=== PATIENT | male | born 1965 | race African-American/Black ===

== ENCOUNTER 2016-10-26 16:09 | Inpatient (IN) | payer MEDICAID ==
[~2016-10-26] VITALS: Ht 172.7 cm; Wt 62.6 kg
[2016-10-26] MEDS ORDERED: ONDANSETRON 2MG/ML, 2ML ONE (17:57)
[2016-10-26] MEDS ORDERED: MORPHINE SULFATE 4 MG/ML, 1ML ONE (17:57)
[2016-10-26] MEDS ORDERED: SODIUM CHLORIDE FLUSH 10ML SYR IVF ONE (18:00)
[2016-10-26] MEDS ORDERED: ONDANSETRON 2MG/ML, 2ML IVPush ONE (18:00)
[2016-10-26] MEDS ORDERED: SODIUM CHLORIDE 0.9% 1,000ML IVBOLUS ONE (18:00)
[2016-10-26] MEDS ORDERED: MORPHINE SULFATE 4 MG/ML, 1ML IVPush PRN (18:00)
[2016-10-26 18:38] LABS: ASPARTATE AMINO TRANSFERASE 33 U/L (15-37); BLOOD UREA NITROGEN 2 mg/dL (7-18)
[2016-10-26] MEDS ORDERED: SODIUM CHLORIDE 0.9% 1,000 ML IV ONE (19:40)
[2016-10-26] MEDS ORDERED: HYDROmorphone 1 MG/ML, 1ML ONE (19:41)
[2016-10-26] MEDS ORDERED: HYDROmorphone 1 MG/ML, 1ML IVPush PRN (20:00)
[2016-10-26 21:00] VITALS: BP 164/94
[2016-10-26] MEDS ORDERED: THIAMINE 100 MG, MVI ADULT 10 ML, FOLIC ACID 1 MG in D5%-0.9% NACL 1,000 ML IV SCH (21:29)
[2016-10-26] MEDS ORDERED: ENALAPRILAT 1.25 MG/ML, 2ML IVPush PRN (21:30)
[2016-10-26] MEDS ORDERED: LABETALOL 5MG/ML, 20ML IV PRN (21:30)
[2016-10-26] MEDS ORDERED: LORazepam 2 MG/ML, 1ML IVPush PRN (21:30)
[2016-10-26] MEDS ORDERED: MAGNESIUM SULFATE PMX 2GM/50ML 50 ML IV ONE (22:00)
[2016-10-26] MEDS: ENOXAPARIN 40 MG/0.4 ML SQ SCH (22:23)
[2016-10-26] MEDS: SODIUM CHLORIDE 0.9% 1,000 ML IV SCH (22:23)
[2016-10-26] MEDS: HYDROmorphone 2 MG/ML, 1ML IV PRN (22:23)
[2016-10-26] MEDS: NICOTINE 14MG/24 HR PATCH.TD24 TD SCH (22:23)
[2016-10-27 01:42] VITALS: BP 151/88
[2016-10-27] MEDS: HYDROmorphone 2 MG/ML, 1ML IV PRN ×5 (02:09→21:27)
[2016-10-27] MEDS: ONDANSETRON 2MG/ML, 2ML IVP PRN ×2 (02:15→18:03)
[2016-10-27] MEDS ORDERED: OMNIPAQUE 350 MG/ML, 150 ML BOTTLE ONE (04:53)
[2016-10-27 05:46] LABS: BLOOD UREA NITROGEN 4 mg/dL (7-18)
[2016-10-27 05:55] LABS: ASPARTATE AMINO TRANSFERASE 22 U/L (15-37)
[2016-10-27] MEDS: SODIUM CHLORIDE 0.9% 1,000 ML IV SCH ×3 (06:07→23:40)
[2016-10-27 07:31] VITALS: BP 163/96
[2016-10-27] MEDS: THIAMINE 100 MG, MVI ADULT 10 ML, FOLIC ACID 1 MG in D5%-0.9% NACL 1,000 ML IV SCH (09:44)
[2016-10-27 14:09] VITALS: BP 168/101
[2016-10-27 14:53] VITALS: BP 149/98
[2016-10-27] MEDS ORDERED: ENALAPRILAT 1.25 MG/ML, 2ML IVPush PRN (15:30)
[2016-10-27 19:22] VITALS: BP_SYST 137; BP_SYST 197; BP_DIAS 96
[2016-10-27] MEDS: ENOXAPARIN 40 MG/0.4 ML SQ SCH (21:27)
[2016-10-27] MEDS: NICOTINE 14MG/24 HR PATCH.TD24 TD SCH (21:27)
[2016-10-28] MEDS: ONDANSETRON 2MG/ML, 2ML IVP PRN ×4 (00:30→22:03)
[2016-10-28 01:21] VITALS: BP 129/88
[2016-10-28] MEDS: HYDROmorphone 2 MG/ML, 1ML IV PRN ×5 (01:54→22:04)
[2016-10-28 06:13] LABS: ASPARTATE AMINO TRANSFERASE 16 U/L (15-37); BLOOD UREA NITROGEN 6 mg/dL (7-18)
[2016-10-28] MEDS: SODIUM CHLORIDE 0.9% 1,000 ML IV SCH ×3 (06:20→18:46)
[2016-10-28 07:44] VITALS: BP 174/104
[2016-10-28 08:15] VITALS: BP 160/99
[2016-10-28] MEDS: THIAMINE 100 MG, MVI ADULT 10 ML, FOLIC ACID 1 MG in D5%-0.9% NACL 1,000 ML IV SCH (08:39)
[2016-10-28 13:42] VITALS: BP 181/106
[2016-10-28] MEDS: hydrALAzine 20 MG/ML, 1ML IV PRN (14:47)
[2016-10-28 15:21] VITALS: BP 151/84
[2016-10-28 19:05] VITALS: BP 154/93
[2016-10-28] MEDS: NICOTINE 14MG/24 HR PATCH.TD24 TD SCH (22:03)
[2016-10-28] MEDS: ENOXAPARIN 40 MG/0.4 ML SQ SCH (22:03)
[2016-10-29] MEDS: SODIUM CHLORIDE 0.9% 1,000 ML IV SCH ×3 (00:14→23:17)
[2016-10-29 04:10] VITALS: BP 186/97
[2016-10-29] MEDS: LABETALOL 5MG/ML, 20ML IV PRN ×2 (04:32→14:03)
[2016-10-29] MEDS: ONDANSETRON 2MG/ML, 2ML IVP PRN ×3 (04:35→21:13)
[2016-10-29 07:27] VITALS: BP 194/111
[2016-10-29] MEDS: hydrALAzine 20 MG/ML, 1ML IV PRN (08:00)
[2016-10-29] MEDS: HYDROmorphone 2 MG/ML, 1ML IV PRN ×4 (08:01→21:14)
[2016-10-29 08:30] VITALS: BP 168/91
[2016-10-29] MEDS ORDERED: PROMETHAZINE 25 MG/ML, 1ML IM PRN (10:00)
[2016-10-29] MEDS ORDERED: BISACODYL 10 MG SUPP PR PRN ×2 (10:00→12:30)
[2016-10-29] MEDS: THIAMINE 100 MG, MVI ADULT 10 ML, FOLIC ACID 1 MG in D5%-0.9% NACL 1,000 ML IV SCH (10:11)
[2016-10-29 13:54] VITALS: BP 176/98
[2016-10-29] MEDS ORDERED: WARFARIN MODERAT DOSE PROTOCOL XX SCH (14:53)
[2016-10-29] MEDS: RIVAROXABAN 15 MG TABLET PO SCH (17:54)
[2016-10-29] MEDS ORDERED: WARFARIN 7.5 MG TABLET PO-COUM ONE (18:00)
[2016-10-29] MEDS ORDERED: OMNIPAQUE 350 MG/ML, 150 ML BOTTLE ONE (19:08)
[2016-10-29 19:17] VITALS: BP 138/88
[2016-10-29] MEDS ORDERED: BISACODYL 10 MG SUPP PR ONE (21:00)
[2016-10-29] MEDS: NICOTINE 14MG/24 HR PATCH.TD24 TD SCH (21:14)
[2016-10-30 02:05] VITALS: BP 119/78
[2016-10-30] MEDS: SODIUM CHLORIDE 0.9% 1,000 ML IV SCH ×4 (05:40→22:31)
[2016-10-30] MEDS: ONDANSETRON 2MG/ML, 2ML IVP PRN (06:05)
[2016-10-30] MEDS: HYDROmorphone 2 MG/ML, 1ML IV PRN ×2 (06:05→09:26)
[2016-10-30 06:18] LABS: ASPARTATE AMINO TRANSFERASE 20 U/L (15-37); BLOOD UREA NITROGEN 5 mg/dL (7-18)
[2016-10-30 07:20] VITALS: BP 132/76
[2016-10-30] MEDS: RIVAROXABAN 15 MG TABLET PO SCH ×2 (09:26→17:45)
[2016-10-30 12:30] VITALS: BP 126/78
[2016-10-30 20:04] VITALS: BP 154/90
[2016-10-30] MEDS: NICOTINE 14MG/24 HR PATCH.TD24 TD SCH (22:32)
[2016-10-31 00:47] LABS: OCCBLD OBC PASS
[2016-10-31 03:15] VITALS: BP 144/86
[2016-10-31] MEDS: SODIUM CHLORIDE 0.9% 1,000 ML IV SCH ×3 (05:11→19:41)
[2016-10-31] MEDS: HYDROmorphone 2 MG/ML, 1ML IV PRN ×2 (05:12→20:32)
[2016-10-31 06:22] LABS: BLOOD UREA NITROGEN 3 mg/dL (7-18)
[2016-10-31 07:12] VITALS: BP 166/97
[2016-10-31] MEDS: RIVAROXABAN 15 MG TABLET PO SCH ×2 (08:06→17:14)
[2016-10-31 14:09] VITALS: BP 155/92
[2016-10-31 19:00] VITALS: BP 173/113
[2016-10-31] MEDS: ONDANSETRON 2MG/ML, 2ML IVP PRN (20:32)
[2016-10-31 21:49] VITALS: BP 151/97
[2016-10-31] MEDS: NICOTINE 14MG/24 HR PATCH.TD24 TD SCH (23:38)
[2016-11-01] MEDS: SODIUM CHLORIDE 0.9% 1,000 ML IV SCH (02:27)
[2016-11-01 02:37] VITALS: BP 159/97
[2016-11-01] MEDS: RIVAROXABAN 15 MG TABLET PO SCH (07:26)
[2016-11-01 08:40] VITALS: BP 148/97
[2016-11-01] MEDS ORDERED: PNEUMOCOCCAL 23 VACCINE IM-VACC ONE (10:30)
[2016-11-01] MEDS ORDERED: RIVA15TA PO (14:42)
[2016-11-01] MEDS ORDERED: ONDA4TAB10 PO (14:42)
== END 2016-11-01 15:11 | disposition home or self-care (01) | DRG 438 ==
LOC: ED 18:31 → EDIP 19:45 → 3NE 20:58
PROVIDERS: ADMIT Internal Medicine; ATTEND Internal Medicine
DX: K85.20 Alcohol induced acute pancreatitis without necrosis or infection (principal); I81 Portal vein thrombosis; K56.7 Ileus, unspecified; C25.9 Malignant neoplasm of pancreas, unspecified; D68.59 Other primary thrombophilia; K86.2 Cyst of pancreas; F17.210 Nicotine dependence, cigarettes, uncomplicated; I10 Essential (primary) hypertension; F10.20 Alcohol dependence, uncomplicated; K80.20 Calculus of gallbladder without cholecystitis without obstruction; D47.3 Essential (hemorrhagic) thrombocythemia; K76.0 Fatty (change of) liver, not elsewhere classified; D75.89 Other specified diseases of blood and blood-forming organs; D64.9 Anemia, unspecified; R00.0 Tachycardia, unspecified
CPT/HCPCS: 36415; 71020; 74000; 74177; 74178; 76700; 80048; 80053; 80061; 81003; 82150; 82272; 82607; 82746; 83690; 83735; 84100; 84443; 85025; 85610; 86301; 90732; 93005; 96361; 96374; 96375; J1170; J1650; J2405; J2550; J3411; J7042; Q9967; J0360; J3475; J7030

== ENCOUNTER 2016-11-30 20:18 | Inpatient (IN) | payer MEDICAID ==
[~2016-11-30] VITALS: Ht 172.7 cm; Wt 59.5 kg
[~2016-11-30 20:18] MED LIST: ONDA4TAB10 PO; RIVA15TA PO
[2016-11-30] MEDS ORDERED: ONDANSETRON 2MG/ML, 2ML ONE (21:06)
[2016-11-30] MEDS ORDERED: SODIUM CHLORIDE 0.9% 1,000 ML IV ONE ×2 (21:08→23:07)
[2016-11-30] MEDS ORDERED: HYDROmorphone 1 MG/ML, 1ML ONE ×2 (21:15→22:27)
[2016-11-30] MEDS: HYDROmorphone 1 MG/ML, 1ML IVPush PRN ×2 (21:22→22:30)
[2016-11-30] MEDS ORDERED: ONDANSETRON 2MG/ML, 2ML IVPush ONE (21:30)
[2016-11-30] MEDS ORDERED: SODIUM CHLORIDE FLUSH 10ML SYR IVF ONE (21:30)
[2016-11-30] MEDS ORDERED: SODIUM CHLORIDE 0.9% 1,000ML IVBOLUS ONE (21:30)
[2016-11-30 21:48] LABS: ASPARTATE AMINO TRANSFERASE 29 U/L (15-37); BLOOD UREA NITROGEN 5 mg/dL (7-18)
[2016-11-30] MEDS: SODIUM CHLORIDE 0.9% 1,000 ML IV SCH (23:28)
[2016-11-30] MEDS ORDERED: ACETAMINOPHEN 325 MG TABLET PO PRN (23:30)
[2016-11-30] MEDS ORDERED: ENOXAPARIN 40 MG/0.4 ML SQ SCH (23:30)
[2016-11-30] MEDS ORDERED: HYDROmorphone 1 MG/ML, 1ML IVPush PRN (23:30)
[2016-11-30] MEDS ORDERED: SODIUM CHLORIDE FLUSH 10ML SYR IVF PRN (23:30)
[2016-11-30] MEDS ORDERED: ONDANSETRON 2MG/ML, 2ML IVPush PRN (23:30)
[2016-11-30] MEDS ORDERED: TRAZODONE 50MG TABLET PO PRN (23:30)
[2016-11-30] MEDS ORDERED: BISACODYL 10 MG SUPP PR PRN (23:30)
[2016-11-30 23:50] VITALS: BP 159/94
[2016-12-01] MEDS: ONDANSETRON ODT 4 MG PO PRN ×2 (00:26→08:21)
[2016-12-01] MEDS: NICOTINE 14MG/24 HR PATCH.TD24 TD SCH ×2 (00:53→23:30)
[2016-12-01 01:40] LABS: ASPARTATE AMINO TRANSFERASE 21 U/L (15-37); BLOOD UREA NITROGEN 4 mg/dL (7-18)
[2016-12-01] MEDS ORDERED: MAGNESIUM SULFATE PMX 4GM/100M 100 ML IV ONE (03:00)
[2016-12-01 03:13] VITALS: BP 170/118
[2016-12-01] MEDS: LABETALOL 5MG/ML, 20ML IVPush PRN ×3 (03:21→13:38)
[2016-12-01 05:00] VITALS: BP 190/115
[2016-12-01] MEDS: SODIUM CHLORIDE 0.9% 1,000 ML IV SCH ×4 (05:11→22:43)
[2016-12-01] MEDS ORDERED: hydrALAzine 20 MG/ML, 1ML IV PRN (05:30)
[2016-12-01] MEDS ORDERED: hydrALAzine 20 MG/ML, 1ML ONE (05:30)
[2016-12-01] MEDS: XARELTO MC SCH ×3 (07:00→11:29)
[2016-12-01 07:36] VITALS: BP 159/96
[2016-12-01] MEDS: RIVAROXABAN 15 MG TABLET PO SCH ×3 (08:00→17:26)
[2016-12-01] MEDS: PROCHLORPERAZINE 5 MG/ML, 2ML IVPush PRN ×2 (09:09→13:18)
[2016-12-01] MEDS: DOCUSATE 100 MG CAPSULE PO PRN (09:09)
[2016-12-01] MEDS: POLYETHYLENE GLYCOL 17 GM PACKET PO PRN (09:17)
[2016-12-01 13:33] VITALS: BP 187/105
[2016-12-01] MEDS: AMLODIPINE 2.5 MG TABLET PO SCH (15:29)
[2016-12-01] MEDS: MULTIVITAMIN 1 TABLET PO SCH (15:29)
[2016-12-01] MEDS: THIAMINE 100MG TABLET PO SCH (15:29)
[2016-12-01] MEDS: FOLIC ACID 1 MG TABLET PO SCH (15:29)
[2016-12-01 19:49] VITALS: BP 164/113
[2016-12-02 03:48] VITALS: BP 170/105
[2016-12-02] MEDS: SODIUM CHLORIDE 0.9% 1,000 ML IV SCH ×2 (04:58→14:52)
[2016-12-02 06:01] LABS: BLOOD UREA NITROGEN 4 mg/dL (7-18)
[2016-12-02] MEDS ORDERED: POTASSIUM CHLORIDE 20 MEQ TAB.ER.PRT PO ONE (07:00)
[2016-12-02 07:26] VITALS: BP 154/100
[2016-12-02] MEDS ORDERED: MAGNESIUM SULFATE PMX 4GM/100M 100 ML IV ONE (08:00)
[2016-12-02] MEDS: THIAMINE 100MG TABLET PO SCH (08:13)
[2016-12-02] MEDS: MULTIVITAMIN 1 TABLET PO SCH (08:13)
[2016-12-02] MEDS: AMLODIPINE 2.5 MG TABLET PO SCH (08:13)
[2016-12-02] MEDS: FOLIC ACID 1 MG TABLET PO SCH (08:14)
[2016-12-02] MEDS: RIVAROXABAN 15 MG TABLET PO SCH ×2 (08:14→17:18)
[2016-12-02 13:37] VITALS: BP 155/100
[2016-12-02] MEDS ORDERED: AMLODIPINE 2.5 MG TABLET PO ONE (14:00)
[2016-12-02] MEDS: POLYETHYLENE GLYCOL 17 GM PACKET PO PRN (14:52)
[2016-12-02] MEDS: DOCUSATE 100 MG CAPSULE PO PRN (14:52)
[2016-12-02] MEDS ORDERED: hydrALAzine 20 MG/ML, 1ML IV PRN (17:30)
[2016-12-02 19:59] VITALS: BP 156/94
[2016-12-02] MEDS: NICOTINE 14MG/24 HR PATCH.TD24 TD SCH (23:30)
[2016-12-03 02:51] VITALS: BP 145/107
[2016-12-03 06:39] LABS: BLOOD UREA NITROGEN 4 mg/dL (7-18)
[2016-12-03 07:21] VITALS: BP 157/100
[2016-12-03] MEDS ORDERED: AMLODIPINE 5 MG TABLET PO SCH (09:00)
[2016-12-03] MEDS: SODIUM CHLORIDE 0.9% 1,000 ML IV SCH (09:28)
[2016-12-03] MEDS: RIVAROXABAN 15 MG TABLET PO SCH (11:19)
[2016-12-03] MEDS: FOLIC ACID 1 MG TABLET PO SCH (11:20)
[2016-12-03] MEDS: MULTIVITAMIN 1 TABLET PO SCH (11:20)
[2016-12-03] MEDS: THIAMINE 100MG TABLET PO SCH (11:20)
[2016-12-03 12:55] VITALS: BP 155/100
[2016-12-03] MEDS ORDERED: FOLI-17 PO (13:53)
[2016-12-03] MEDS ORDERED: HYDR12.58 PO (13:53)
[2016-12-03] MEDS ORDERED: AMLO5TAB2 PO (13:53)
[2016-12-03] MEDS ORDERED: MULT1TAB60 PO (13:53)
[2016-12-03] MEDS ORDERED: THIA100T6 PO (13:53)
== END 2016-12-03 15:42 | disposition home or self-care (01) | DRG 439 ==
LOC: ED 21:20 → EDIP 23:07 → 4NOR 12-01 00:03 → 3NE 12-03 05:29 → DCLOUNGE 12-03 15:25
PROVIDERS: ADMIT Internal Medicine; ATTEND Internal Medicine
DX: K86.0 Alcohol-induced chronic pancreatitis (principal); E87.1 Hypo-osmolality and hyponatremia; K86.3 Pseudocyst of pancreas; E87.2 Acidosis; E44.1 Mild protein-calorie malnutrition; Z68.1 Body mass index [BMI] 19.9 or less, adult; D64.9 Anemia, unspecified; E83.42 Hypomagnesemia; F10.20 Alcohol dependence, uncomplicated; E87.8 Other disorders of electrolyte and fluid balance, not elsewhere classified; F17.210 Nicotine dependence, cigarettes, uncomplicated; I10 Essential (primary) hypertension; Z86.718 Personal history of other venous thrombosis and embolism
CPT/HCPCS: 36415; 74022; 80048; 80053; 81001; 82040; 83605; 83690; 83735; 85025; 87086; 93005; 96361; 96374; 96375; 96376; J1170; J1650; J2405; Q0162; J0360; J0780; J3475; J7030

== ENCOUNTER 2017-01-23 02:42 | Emergency (ER) | payer MEDICAID ==
[~2017-01-23] VITALS: Ht 172.7 cm; Wt 58.2 kg
[~2017-01-23 02:42] MED LIST changes: +AMLO5TAB2 PO; +FOLI-17 PO; +HYDR12.58 PO; +MULT1TAB60 PO; +OXYC5TAB3 PO; +THIA100T6 PO
[2017-01-23] MEDS ORDERED: ONDANSETRON 2MG/ML, 2ML ONE (03:27)
[2017-01-23] MEDS ORDERED: ONDANSETRON 2MG/ML, 2ML IVPush ONE (03:30)
[2017-01-23] MEDS ORDERED: SODIUM CHLORIDE FLUSH 10ML SYR IVF ONE (03:30)
[2017-01-23] MEDS ORDERED: SODIUM CHLORIDE 0.9% 1,000ML IVBOLUS ONE (03:30)
[2017-01-23] MEDS ORDERED: MORPHINE SULFATE 4 MG/ML, 1ML ONE ×2 (03:52→05:06)
[2017-01-23] MEDS: MORPHINE SULFATE 4 MG/ML, 1ML IVPush PRN ×2 (03:55→05:10)
[2017-01-23 04:08] LABS: ASPARTATE AMINO TRANSFERASE 42 U/L (15-37); BLOOD UREA NITROGEN 2 mg/dL (7-18)
[2017-01-23 05:04] VITALS: BP 132/87
== END 2017-01-23 05:55 | disposition home or self-care (01) ==
LOC: ED 04:17
DX: K85.20 Alcohol induced acute pancreatitis without necrosis or infection (principal); F10.120 Alcohol abuse with intoxication, uncomplicated; G40.909 Epilepsy, unspecified, not intractable, without status epilepticus
CPT/HCPCS: 36415; 80053; 80307; 81003; 83690; 85025; 96361; 96374; 96375; 96376; 99284; J2405; J7030

== ENCOUNTER 2017-01-26 18:48 | Inpatient (IN) | payer MEDICAID ==
[~2017-01-26] VITALS: Ht 172.7 cm; Wt 62.9 kg
[2017-01-26] MEDS ORDERED: ONDANSETRON 2MG/ML, 2ML IVPush ONE (19:30)
[2017-01-26] MEDS ORDERED: SODIUM CHLORIDE FLUSH 10ML SYR IVF ONE (19:30)
[2017-01-26] MEDS ORDERED: SODIUM CHLORIDE 0.9% 1,000ML IVBOLUS ONE (19:30)
[2017-01-26] MEDS ORDERED: ONDANSETRON 2MG/ML, 2ML ONE (19:35)
[2017-01-26] MEDS ORDERED: HYDROmorphone 1 MG/ML, 1ML ONE ×2 (19:35→20:23)
[2017-01-26] MEDS: HYDROmorphone 1 MG/ML, 1ML IVPush PRN ×2 (19:41→20:47)
[2017-01-26 19:43] LABS: HEMATOCRIT 41.1 % (39.2-51.8); HEMOGLOBIN 13.7 g/dL (13.7-18.0); WHITE BLOOD COUNT 6.7 x10^3/uL (3.4-10)
[2017-01-26 19:45] LABS: ASPARTATE AMINO TRANSFERASE 19 U/L (15-37); BLOOD UREA NITROGEN 3 mg/dL (7-18)
[2017-01-26] MEDS ORDERED: SODIUM CHLORIDE FLUSH 10ML SYR IVF PRN (21:30)
[2017-01-26] MEDS ORDERED: AMLO1CAP8 PO (21:51)
[2017-01-26] MEDS ORDERED: POTASSIUM CHLORIDE 20 MEQ in LACTATED RINGERS 1,000 ML IV SCH (21:59)
[2017-01-26] MEDS ORDERED: ACETAMINOPHEN 325 MG TABLET PO PRN (22:00)
[2017-01-26] MEDS ORDERED: POLYETHYLENE GLYCOL 17 GM PACKET PO PRN (22:00)
[2017-01-26] MEDS ORDERED: AMLODIPINE 5 MG TABLET PO ONE (22:00)
[2017-01-26] MEDS ORDERED: ZOLPIDEM 5MG TABLET PO PRN (22:00)
[2017-01-26] MEDS ORDERED: ONDANSETRON ODT 4 MG PO PRN (22:00)
[2017-01-26 22:24] VITALS: BP 124/87
[2017-01-26] MEDS ORDERED: LORazepam 0.5MG TABLET PO PRN (22:30)
[2017-01-26] MEDS ORDERED: POTASSIUM CHLORIDE 20 MEQ TAB.ER.PRT PO ONE (22:30)
[2017-01-26] MEDS ORDERED: LORazepam 2 MG/ML, 1ML IV PRN ×5 (22:30)
[2017-01-26] MEDS ORDERED: LORazepam 1MG TABLET PO PRN ×4 (22:30)
[2017-01-26] MEDS: POTASSIUM CHLORIDE 10 MEQ in SODIUM CHLORIDE 0.9% 1,000 ML IV SCH (23:02)
[2017-01-27] VITALS (8 sets, daily range): BP systolic 133–185; BP diastolic 88–118
[2017-01-27] MEDS: NICOTINE 7 MG/24 HR PATCH.TD24 TD SCH ×2 (00:30→23:06)
[2017-01-27] MEDS: HYDROmorphone 2 MG/ML, 1ML IVPush PRN ×5 (00:30→21:04)
[2017-01-27 05:18] LABS: HEMATOCRIT 33.7 % (39.2-51.8); HEMOGLOBIN 11.3 g/dL (13.7-18.0); WHITE BLOOD COUNT 6.1 x10^3/uL (3.4-10)
[2017-01-27 05:29] LABS: BLOOD UREA NITROGEN 3 mg/dL (7-18)
[2017-01-27] MEDS: POTASSIUM CHLORIDE 10 MEQ in SODIUM CHLORIDE 0.9% 1,000 ML IV SCH ×2 (08:08→23:06)
[2017-01-27] MEDS: ONDANSETRON 2MG/ML, 2ML IVPush PRN ×2 (08:09→23:07)
[2017-01-27] MEDS: HYDROCHLOROTHIAZIDE 12.5 MG CAPSULE PO SCH (09:00)
[2017-01-27] MEDS: FOLIC ACID 1 MG TABLET PO SCH (09:52)
[2017-01-27] MEDS: MULTIVITAMIN 1 TABLET PO SCH (09:52)
[2017-01-27] MEDS: BENAZEPRIL 10 MG TABLET PO SCH (09:52)
[2017-01-27] MEDS: SENNA/DOCUSATE TABLET PO SCH (09:53)
[2017-01-27] MEDS: NS + 40MEQ KCL 1,000 ML IV SCH ×3 (12:21→20:00)
[2017-01-27] MEDS ORDERED: GLYCERIN ADULT SUPP PR ONE (13:30)
[2017-01-27 15:15] LABS: BLOOD UREA NITROGEN 4 mg/dL (7-18)
[2017-01-27] MEDS: RIVAROXABAN 15 MG TABLET PO SCH (17:40)
[2017-01-28 00:30] VITALS: BP 177/105
[2017-01-28] MEDS: HYDROmorphone 2 MG/ML, 1ML IVPush PRN ×2 (00:40→06:48)
[2017-01-28] MEDS: ENALAPRILAT 1.25 MG/ML, 2ML IVPush PRN ×3 (00:40→20:36)
[2017-01-28 01:20] VITALS: BP 142/89
[2017-01-28] MEDS: POTASSIUM CHLORIDE 10 MEQ in SODIUM CHLORIDE 0.9% 1,000 ML IV SCH ×2 (06:09→16:01)
[2017-01-28] MEDS: ONDANSETRON 2MG/ML, 2ML IVPush PRN (06:27)
[2017-01-28 06:30] VITALS: BP 184/111
[2017-01-28 07:47] LABS: BLOOD UREA NITROGEN 4 mg/dL (7-18)
[2017-01-28] MEDS: MULTIVITAMIN 1 TABLET PO SCH (08:09)
[2017-01-28] MEDS: SENNA/DOCUSATE TABLET PO SCH (08:09)
[2017-01-28] MEDS: HYDROCHLOROTHIAZIDE 12.5 MG CAPSULE PO SCH (08:09)
[2017-01-28] MEDS: FOLIC ACID 1 MG TABLET PO SCH (08:09)
[2017-01-28] MEDS: BENAZEPRIL 10 MG TABLET PO SCH (08:10)
[2017-01-28] MEDS: HYDROcodone/APAP 5/325 TABLET PO PRN ×2 (11:12→16:11)
[2017-01-28 14:00] VITALS: BP 150/107
[2017-01-28 18:05] LABS: BLOOD UREA NITROGEN 3 mg/dL (7-18)
[2017-01-28] MEDS ORDERED: GLYCERIN ADULT SUPP PR PRN (18:30)
[2017-01-28 19:36] VITALS: BP 165/104
[2017-01-28] MEDS: RIVAROXABAN 15 MG TABLET PO SCH (19:39)
[2017-01-28] MEDS: NICOTINE 7 MG/24 HR PATCH.TD24 TD SCH (20:35)
[2017-01-28 21:35] VITALS: BP 153/103
[2017-01-29] MEDS: POTASSIUM CHLORIDE 10 MEQ in SODIUM CHLORIDE 0.9% 1,000 ML IV SCH (01:32)
[2017-01-29] MEDS: ENALAPRILAT 1.25 MG/ML, 2ML IVPush PRN (01:33)
[2017-01-29 01:51] VITALS: BP 184/115
[2017-01-29 03:30] VITALS: BP 174/103
[2017-01-29] MEDS ORDERED: ENALAPRILAT 1.25 MG/ML, 2ML IV ONE (04:00)
[2017-01-29 05:00] VITALS: BP 143/86
[2017-01-29 07:33] VITALS: BP 151/100
[2017-01-29] MEDS: MULTIVITAMIN 1 TABLET PO SCH (09:16)
[2017-01-29] MEDS: AMLODIPINE 5 MG TABLET PO SCH (09:16)
[2017-01-29] MEDS: SENNA/DOCUSATE TABLET PO SCH (09:16)
[2017-01-29] MEDS: HYDROCHLOROTHIAZIDE 12.5 MG CAPSULE PO SCH (09:17)
[2017-01-29] MEDS: FOLIC ACID 1 MG TABLET PO SCH (09:17)
[2017-01-29] MEDS: HYDROcodone/APAP 5/325 TABLET PO PRN ×3 (09:18→21:57)
[2017-01-29] MEDS: BENAZEPRIL 20 MG TABLET PO SCH (09:19)
[2017-01-29 13:15] VITALS: BP 165/105
[2017-01-29] MEDS: RIVAROXABAN 15 MG TABLET PO SCH (17:30)
[2017-01-29 19:09] VITALS: BP 94/61
[2017-01-29 21:10] LABS: OCCBLD OBC PASS
[2017-01-29] MEDS: NICOTINE 7 MG/24 HR PATCH.TD24 TD SCH (21:57)
[2017-01-30 02:08] VITALS: BP 104/72
[2017-01-30 07:25] VITALS: BP 85/51
[2017-01-30] MEDS: BENAZEPRIL 20 MG TABLET PO SCH (07:43)
[2017-01-30] MEDS: HYDROCHLOROTHIAZIDE 12.5 MG CAPSULE PO SCH (07:44)
[2017-01-30] MEDS: AMLODIPINE 5 MG TABLET PO SCH (08:19)
[2017-01-30] MEDS: MULTIVITAMIN 1 TABLET PO SCH (08:19)
[2017-01-30] MEDS: FOLIC ACID 1 MG TABLET PO SCH (08:19)
[2017-01-30] MEDS: SENNA/DOCUSATE TABLET PO SCH (08:20)
[2017-01-30] MEDS ORDERED: NICO1PAT10 TD (12:55)
[2017-01-30] MEDS ORDERED: ACET325T14 PO (12:55)
[2017-01-30 13:05] VITALS: BP 96/62
[2017-01-30] MEDS: NICOTINE 7 MG/24 HR PATCH.TD24 TD SCH (14:15)
== END 2017-01-30 14:25 | disposition home or self-care (01) | DRG 439 ==
LOC: ED 20:31 → EDIP 21:17 → 3NE 22:00
PROVIDERS: ADMIT Family Medicine; ATTEND Family Medicine
DX: K85.20 Alcohol induced acute pancreatitis without necrosis or infection (principal); K86.3 Pseudocyst of pancreas; E46 Unspecified protein-calorie malnutrition; K92.1 Melena; F10.10 Alcohol abuse, uncomplicated; F17.200 Nicotine dependence, unspecified, uncomplicated; I10 Essential (primary) hypertension; E87.6 Hypokalemia; K59.00 Constipation, unspecified; E86.0 Dehydration; R56.9 Unspecified convulsions; K76.9 Liver disease, unspecified; Z68.21 Body mass index [BMI] 21.0-21.9, adult; Z79.01 Long term (current) use of anticoagulants; Z85.00 Personal history of malignant neoplasm of unspecified digestive organ
CPT/HCPCS: 36415; 71020; 76700; 80048; 80053; 80307; 81001; 82272; 83690; 83735; 85025; 85610; 85730; 87086; 96361; 96374; 96375; 96376; J1170; J2405; J3480; J7030

== ENCOUNTER 2017-02-02 06:35 | Inpatient (IN) | payer MEDICAID ==
[~2017-02-02] VITALS: Ht 172.7 cm; Wt 62.8 kg
[~2017-02-02 06:35] MED LIST changes: +ACET325T14 PO; +AMLO1CAP8 PO; +NICO1PAT10 TD
[2017-02-02] MEDS ORDERED: SODIUM CHLORIDE 0.9% 1,000 ML IV ONE (06:54)
[2017-02-02] MEDS ORDERED: SODIUM CHLORIDE 0.9% 1,000ML IVBOLUS ONE (07:00)
[2017-02-02] MEDS ORDERED: ONDANSETRON 2MG/ML, 2ML IVPush ONE (07:00)
[2017-02-02] MEDS ORDERED: SODIUM CHLORIDE FLUSH 10ML SYR IVF ONE (07:00)
[2017-02-02 07:23] LABS: HEMATOCRIT 38.2 % (39.2-51.8); HEMOGLOBIN 12.9 g/dL (13.7-18.0); WHITE BLOOD COUNT 6.1 x10^3/uL (3.4-10)
[2017-02-02 07:27] LABS: BLOOD UREA NITROGEN 3 mg/dL (7-18)
[2017-02-02] MEDS ORDERED: ONDANSETRON 2MG/ML, 2ML ONE (07:29)
[2017-02-02] MEDS ORDERED: HYDROmorphone 1 MG/ML, 1ML ONE ×2 (07:29→08:47)
[2017-02-02 07:31] LABS: ASPARTATE AMINO TRANSFERASE 137 U/L (15-37)
[2017-02-02] MEDS: HYDROmorphone 1 MG/ML, 1ML IVPush PRN ×2 (07:34→08:50)
[2017-02-02] MEDS ORDERED: OMNIPAQUE 350 MG/ML, 100ML BOTTLE ONE (08:11)
[2017-02-02] MEDS ORDERED: CEFOTETAN PMX 1GM/50ML 50 ML IV ONE (09:00)
[2017-02-02] MEDS ORDERED: SODIUM CHLORIDE 0.9% 1,000 ML IV SCH (09:13)
[2017-02-02] MEDS ORDERED: BISACODYL 10 MG SUPP PR PRN (09:30)
[2017-02-02] MEDS ORDERED: LABETALOL 5MG/ML, 20ML IVPush PRN (09:30)
[2017-02-02] MEDS ORDERED: ENALAPRILAT 1.25 MG/ML, 2ML IVPush PRN (09:30)
[2017-02-02] MEDS ORDERED: ONDANSETRON 2MG/ML, 2ML IVPush PRN (09:30)
[2017-02-02] MEDS ORDERED: POLYETHYLENE GLYCOL 17 GM PACKET PO PRN (09:30)
[2017-02-02] MEDS ORDERED: CEFOTETAN PMX 1GM/50ML 50 ML ONE (09:33)
[2017-02-02 10:40] VITALS: BP 164/106
[2017-02-02 11:02] VITALS: BP 152/87
[2017-02-02] MEDS: SODIUM CHLORIDE 0.9% 1,000 ML IV SCH ×3 (11:39→23:08)
[2017-02-02] MEDS: morphine SULFATE 10 MG/ML, 1ML IVPush PRN ×4 (11:39→23:15)
[2017-02-02] MEDS: NICOTINE 7 MG/24 HR PATCH.TD24 TD SCH (11:40)
[2017-02-02 12:53] VITALS: BP 133/94
[2017-02-02] MEDS ORDERED: [UNRECOGNIZED DRUG - REMARK] MC PRN (19:00)
[2017-02-02 20:14] VITALS: BP 157/93
[2017-02-02] MEDS ORDERED: HEPARIN 5,000 UNITS/ML, 1ML SQ SCH (21:00)
[2017-02-03 03:58] VITALS: BP 163/94
[2017-02-03] MEDS: SODIUM CHLORIDE 0.9% 1,000 ML IV SCH ×4 (05:31→19:21)
[2017-02-03] MEDS: morphine SULFATE 10 MG/ML, 1ML IVPush PRN ×6 (05:31→22:27)
[2017-02-03 05:36] LABS: HEMATOCRIT 37.6 % (39.2-51.8); HEMOGLOBIN 12.4 g/dL (13.7-18.0); WHITE BLOOD COUNT 5.4 x10^3/uL (3.4-10)
[2017-02-03 05:47] LABS: BLOOD UREA NITROGEN 2 mg/dL (7-18)
[2017-02-03 05:50] LABS: ASPARTATE AMINO TRANSFERASE 66 U/L (15-37)
[2017-02-03 07:41] VITALS: BP 149/95
[2017-02-03] MEDS: BENAZEPRIL 10 MG TABLET PO SCH (08:14)
[2017-02-03] MEDS: AMLODIPINE 5 MG TABLET PO SCH (08:14)
[2017-02-03] MEDS ORDERED: HYDROCHLOROTHIAZIDE 12.5 MG CAPSULE PO SCH (09:00)
[2017-02-03] MEDS ORDERED: SODIUM CHLORIDE 0.9% 1,000 ML IV SCH (09:13)
[2017-02-03] MEDS: NICOTINE 7 MG/24 HR PATCH.TD24 TD SCH (12:26)
[2017-02-03 14:02] VITALS: BP 134/88
[2017-02-03] MEDS: FOLIC ACID 1 MG TABLET PO SCH (15:31)
[2017-02-03] MEDS: MULTIVITAMIN 1 TABLET PO SCH (15:31)
[2017-02-03] MEDS: THIAMINE 100MG TABLET PO SCH (15:31)
[2017-02-03 19:34] VITALS: BP 127/90
[2017-02-04] MEDS: SODIUM CHLORIDE 0.9% 1,000 ML IV SCH ×5 (01:34→22:55)
[2017-02-04] MEDS: morphine SULFATE 10 MG/ML, 1ML IVPush PRN ×4 (01:34→19:56)
[2017-02-04 03:09] VITALS: BP 129/76
[2017-02-04 06:07] LABS: HEMATOCRIT 32.8 % (39.2-51.8); WHITE BLOOD COUNT 5.4 x10^3/uL (3.4-10)
[2017-02-04 06:19] LABS: BLOOD UREA NITROGEN 2 mg/dL (7-18)
[2017-02-04 06:23] LABS: ASPARTATE AMINO TRANSFERASE 31 U/L (15-37)
[2017-02-04 08:47] VITALS: BP 136/80
[2017-02-04] MEDS: AMLODIPINE 5 MG TABLET PO SCH (09:35)
[2017-02-04] MEDS: THIAMINE 100MG TABLET PO SCH (09:36)
[2017-02-04] MEDS: FOLIC ACID 1 MG TABLET PO SCH (09:36)
[2017-02-04] MEDS: MULTIVITAMIN 1 TABLET PO SCH (09:36)
[2017-02-04] MEDS: BENAZEPRIL 10 MG TABLET PO SCH (09:36)
[2017-02-04] MEDS: NICOTINE 7 MG/24 HR PATCH.TD24 TD SCH (12:00)
[2017-02-04] MEDS ORDERED: PIPERACILLIN/TAZO/PMX 3.375GM 50 ML ONE (14:08)
[2017-02-04] MEDS ORDERED: MIDAZOLAM 1 MG/ML, 2ML ONE (14:19)
[2017-02-04] MEDS ORDERED: CHLORHEXIDINE MOUTHWASH 15 ML UDC ONE (14:21)
[2017-02-04] MEDS ORDERED: ALBUTEROL SULFATE 2.5 MG/3 ML NPPB PRN (15:00)
[2017-02-04] MEDS ORDERED: ONDANSETRON 2MG/ML, 2ML IVPush PRN (15:00)
[2017-02-04] MEDS ORDERED: METOPROLOL 1 MG/ML, 5ML IV PRN (15:00)
[2017-02-04] MEDS ORDERED: FENTANYL PF 100 MCG/2ML IV PRN (15:00)
[2017-02-04] MEDS ORDERED: PROMETHAZINE 25 MG/ML, 1ML IV PRN (15:00)
[2017-02-04] MEDS ORDERED: MIDAZOLAM 1 MG/ML, 2ML IV PRN (15:00)
[2017-02-04] MEDS ORDERED: MEPERIDINE/PF 25MG/0.5ML IVPush PRN (15:00)
[2017-02-04] MEDS ORDERED: hydrALAzine 20 MG/ML, 1ML IV PRN (15:00)
[2017-02-04] MEDS ORDERED: HYDROmorphone 1 MG/ML, 1ML IV PRN (15:00)
[2017-02-04] MEDS ORDERED: LABETALOL 5MG/ML, 20ML IV PRN (15:00)
[2017-02-04] MEDS ORDERED: EPHEDRINE 50 MG/ML, 1ML IVPush PRN (15:00)
[2017-02-04] MEDS ORDERED: HYDROcodone/APAP 7.5-325MG/15ML UDC PO PRN (15:00)
[2017-02-04] MEDS ORDERED: OXYcodone 5 MG/5 ML ORAL.SOL UDC PO PRN (15:00)
[2017-02-04] MEDS ORDERED: ACETAMINOPHEN 325 MG TABLET PO PRN (15:00)
[2017-02-04] MEDS ORDERED: ONDANSETRON 2MG/ML, 2ML ONE (16:00)
[2017-02-04] MEDS ORDERED: KETOROLAC 30 MG/1 ML ONE (16:00)
[2017-02-04] MEDS ORDERED: PROPOFOL 10 MG/ML, 20ML ONE (16:00)
[2017-02-04] MEDS ORDERED: DEXAMETHASONE 4 MG/ML, 1ML ONE (16:00)
[2017-02-04 19:50] VITALS: BP 103/65
[2017-02-05] MEDS: morphine SULFATE 10 MG/ML, 1ML IVPush PRN (01:54)
[2017-02-05 03:34] VITALS: BP 122/71
[2017-02-05] MEDS: SODIUM CHLORIDE 0.9% 1,000 ML IV SCH ×4 (04:00→19:00)
[2017-02-05 05:21] LABS: HEMATOCRIT 30.5 % (39.2-51.8); HEMOGLOBIN 10.1 g/dL (13.7-18.0); WHITE BLOOD COUNT 7.5 x10^3/uL (3.4-10)
[2017-02-05 05:33] LABS: ASPARTATE AMINO TRANSFERASE 21 U/L (15-37); BLOOD UREA NITROGEN 3 mg/dL (7-18)
[2017-02-05 07:42] VITALS: BP 155/84
[2017-02-05] MEDS: MULTIVITAMIN 1 TABLET PO SCH (09:57)
[2017-02-05] MEDS: AMLODIPINE 5 MG TABLET PO SCH (09:57)
[2017-02-05] MEDS: THIAMINE 100MG TABLET PO SCH (09:57)
[2017-02-05] MEDS: FOLIC ACID 1 MG TABLET PO SCH (09:57)
[2017-02-05] MEDS: BENAZEPRIL 10 MG TABLET PO SCH (09:58)
[2017-02-05] MEDS: NICOTINE 7 MG/24 HR PATCH.TD24 TD SCH (10:02)
[2017-02-05] MEDS: HYDROcodone/APAP 5/325 TABLET PO PRN ×3 (10:09→20:36)
[2017-02-05 13:57] VITALS: BP 147/82
[2017-02-05 18:34] VITALS: BP 144/84
[2017-02-05 18:46] VITALS: BP 147/86
[2017-02-06 01:11] VITALS: BP 132/81
[2017-02-06] MEDS: SODIUM CHLORIDE 0.9% 1,000 ML IV SCH ×4 (05:43→12:02)
[2017-02-06 05:51] LABS: ASPARTATE AMINO TRANSFERASE 33 U/L (15-37)
[2017-02-06 05:52] LABS: BLOOD UREA NITROGEN < 1 mg/dL (7-18)
[2017-02-06 05:55] LABS: HEMATOCRIT 33.7 % (39.2-51.8); HEMOGLOBIN 11.2 g/dL (13.7-18.0); WHITE BLOOD COUNT 6.5 x10^3/uL (3.4-10)
[2017-02-06] MEDS: HYDROcodone/APAP 5/325 TABLET PO PRN (06:11)
[2017-02-06 07:16] VITALS: BP 136/87
[2017-02-06] MEDS: THIAMINE 100MG TABLET PO SCH (07:38)
[2017-02-06] MEDS: MULTIVITAMIN 1 TABLET PO SCH (07:38)
[2017-02-06] MEDS: BENAZEPRIL 10 MG TABLET PO SCH (07:38)
[2017-02-06] MEDS: AMLODIPINE 5 MG TABLET PO SCH (07:38)
[2017-02-06] MEDS: FOLIC ACID 1 MG TABLET PO SCH (07:38)
[2017-02-06] MEDS: morphine SULFATE 10 MG/ML, 1ML IVPush PRN (07:54)
[2017-02-06] MEDS: NICOTINE 7 MG/24 HR PATCH.TD24 TD SCH (10:19)
[2017-02-06 13:23] VITALS: BP 133/76
[2017-02-06] MEDS ORDERED: HYDR-3240 PO (14:24)
== END 2017-02-06 15:24 | disposition home or self-care (01) | DRG 439 ==
LOC: ED 07:48 → EDIP 08:58 → 4NOR 10:38 → DCLOUNGE 02-06 14:34
PROVIDERS: ADMIT Family Medicine; ATTEND Family Medicine
PROC: 0FBG4ZX Excision of Pancreas, Percutaneous Endoscopic Approach, Diagnostic (ICD-10-PCS; 2017-02-04)
PROC: BF47ZZZ Ultrasonography of Pancreas (ICD-10-PCS; 2017-02-04)
PROC: 0DB98ZX Excision of Duodenum, Via Natural or Artificial Opening Endoscopic, Diagnostic (ICD-10-PCS; principal; 2017-02-04 13:45)
DX: K85.20 Alcohol induced acute pancreatitis without necrosis or infection (principal); D68.9 Coagulation defect, unspecified; K86.3 Pseudocyst of pancreas; E87.1 Hypo-osmolality and hyponatremia; K80.10 Calculus of gallbladder with chronic cholecystitis without obstruction; K86.0 Alcohol-induced chronic pancreatitis; K85.90 Acute pancreatitis without necrosis or infection, unspecified; I10 Essential (primary) hypertension; F17.210 Nicotine dependence, cigarettes, uncomplicated; G40.909 Epilepsy, unspecified, not intractable, without status epilepticus; Z79.01 Long term (current) use of anticoagulants; Z86.718 Personal history of other venous thrombosis and embolism
CPT/HCPCS: 36415; 74177; 80053; 81003; 83690; 85025; 85610; 85730; 86301; 88104; 88173; 88305; 88307; 93005; 96361; 96374; 96375; J1100; J1170; J1885; J2250; J2405; J2543; J2704; Q9967; J2270; J7030; S0074

== ENCOUNTER 2017-06-07 12:42 | Emergency (ER) | payer MEDICAID ==
[~2017-06-07] VITALS: Ht 172.7 cm; Wt 66.6 kg
[~2017-06-07 12:42] MED LIST changes: +HYDR-3240 PO; +NICO-485 TD; -NICO1PAT10 TD
[2017-06-07 12:44] VITALS: BP 138/90
[2017-06-07] MEDS ORDERED: DIPHENHYDRAMINE 25 MG CAPSULE ONE (13:27)
[2017-06-07] MEDS ORDERED: DIPHENHYDRAMINE 25 MG CAPSULE PO ONE (13:30)
== END 2017-06-07 13:52 | disposition home or self-care (01) ==
LOC: ED 13:45
DX: L23.9 Allergic contact dermatitis, unspecified cause (principal); Z76.0 Encounter for issue of repeat prescription; G40.909 Epilepsy, unspecified, not intractable, without status epilepticus; I10 Essential (primary) hypertension; Z90.49 Acquired absence of other specified parts of digestive tract
CPT/HCPCS: 99283; Q0163

== ENCOUNTER 2018-02-04 11:07 | Inpatient (IN) | payer MEDICAID ==
[~2018-02-04] VITALS: Ht 172.7 cm; Wt 62.1 kg
[~2018-02-04 11:07] MED LIST changes: -THIA100T6 PO; +THIA100T67 PO
[2018-02-04 11:58] LABS: BASOPHILS # (AUTO) 0.01 x10^3/uL (0-0.1); BASOPHILS % (AUTO) 0 % (0-1); EOSINOPHILS # (AUTO) 0.02 x10^3/uL (0-0.4); EOSINOPHILS % (AUTO) 0 % (1-7); LYMPHOCYTES # (AUTO) 0.64 x10^3/uL (1-3.4); LYMPHOCYTES % (AUTO) 11 % (22-44); MD NO; MEAN CORPUSCULAR HEMOGLOBIN 33.5 pg (27.5-34.5); MEAN CORPUSCULAR HGB CONC 34.5 g/dL (33.2-36.2); MEAN CORPUSCULAR VOLUME 97.1 fL (81-97); MEAN PLATELET VOLUME 7.1 fL (7.4-10.4); MONOCYTES # (AUTO) 0.59 x10^3/uL (0.2-0.8); MONOCYTES % (AUTO) 10 % (2-9); NEUTROPHILS # (AUTO) 4.59 x10^3/uL (1.8-6.8); NEUTROPHILS % (AUTO) 78 % (42-75); PLATELET COUNT 202 x10^3/uL (130-400); RED BLOOD COUNT 4.24 x10^6/uL (4.38-5.82); RED CELL DISTRIBUTION WIDTH 14.8 % (9.4-14.8)
[2018-02-04 12:12] LABS: ALANINE AMINOTRANSFERASE 299 U/L (12-78); ALBUMIN 4.1 g/dL (3.4-5.0); ANION GAP 9 mmol/L (5-15); CHLORIDE 99 mmol/L (98-107)
[2018-02-04 12:17] LABS: ALKALINE PHOSPHATASE 557 U/L (45-117); CREATININE 0.95 mg/dL (0.7-1.3); TOTAL PROTEIN 8.5 g/dL (6.4-8.2)
[2018-02-04] MEDS ORDERED: OMNIPAQUE 350 MG/ML, 150 ML BOTTLE ONE (12:42)
[2018-02-04] MEDS ORDERED: SODIUM CHLORIDE FLUSH 10ML SYR IVF ONE ×2 (13:00→14:00)
[2018-02-04] MEDS ORDERED: SODIUM CHLORIDE 0.9% 1,000 ML IV ONE ×2 (13:31→13:37)
[2018-02-04] MEDS ORDERED: SODIUM CHLORIDE FLUSH 10ML SYR IVF PRN (14:00)
[2018-02-04] MEDS ORDERED: ONDANSETRON 2MG/ML, 2ML IVPush PRN ×2 (14:00→15:30)
[2018-02-04] MEDS ORDERED: ONDANSETRON 2MG/ML, 2ML IVPush ONE (14:00)
[2018-02-04] MEDS ORDERED: MORPHINE SULFATE 4 MG/ML, 1ML IVPush PRN ×2 (14:00)
[2018-02-04 14:57] VITALS: BP 147/89
[2018-02-04] MEDS ORDERED: LABETALOL 5MG/ML, 20ML IVPush PRN (15:30)
[2018-02-04] MEDS: RIVAROXABAN 15 MG TABLET PO SCH (17:14)
[2018-02-04] MEDS: NICOTINE 7 MG/24 HR PATCH.TD24 TD SCH (17:15)
[2018-02-04] MEDS: LACTATED RINGERS 1,000 ML IV SCH ×2 (17:20→22:08)
[2018-02-04] MEDS: morphine SULFATE 10 MG/ML, 1ML IVPush PRN (17:31)
[2018-02-04 19:48] VITALS: BP 136/96
[2018-02-04] MEDS: FAMOTIDINE 20 MG/2 ML IVPush SCH (22:08)
[2018-02-05 00:44] VITALS: BP 135/78
[2018-02-05] MEDS: morphine SULFATE 10 MG/ML, 1ML IVPush PRN ×3 (03:33→20:24)
[2018-02-05] MEDS: LACTATED RINGERS 1,000 ML IV SCH ×4 (05:21→23:59)
[2018-02-05 05:51] LABS: CHLORIDE 105 mmol/L (98-107)
[2018-02-05 06:05] LABS: ALANINE AMINOTRANSFERASE 195 U/L (12-78); ALBUMIN 3.3 g/dL (3.4-5.0); ALKALINE PHOSPHATASE 399 U/L (45-117); ANION GAP 7 mmol/L (5-15); BILIRUBIN,TOTAL 1.5 mg/dL (0.2-1.0); CALCIUM 8.3 mg/dL (8.5-10.1); CHOL/HDL RATIO 1.8; CHOLESTEROL, TOTAL 144 mg/dL (140-239); CREATININE 0.76 mg/dL (0.7-1.3); HDL CHOL % 56 % (26-37); HDL CHOLESTEROL (DIRECT) 80 mg/dL (40-60); LDL CHOLESTEROL,CALCULATED 52 mg/dL (54-169); LDL/HDL RATIO 0.7 (0.5-3.0); TOTAL PROTEIN 6.9 g/dL (6.4-8.2); TRIGLYCERIDES 58 mg/dL (50-200); VLDL CHOLESTEROL 12 mg/dL (0-25)
[2018-02-05 06:28] LABS: BASOPHILS # (AUTO) 0.01 x10^3/uL (0-0.1); BASOPHILS % (AUTO) 0 % (0-1); EOSINOPHILS # (AUTO) 0.05 x10^3/uL (0-0.4); EOSINOPHILS % (AUTO) 1 % (1-7); LYMPHOCYTES # (AUTO) 0.85 x10^3/uL (1-3.4); LYMPHOCYTES % (AUTO) 18 % (22-44); MD SCAN; MEAN CORPUSCULAR HEMOGLOBIN 33.4 pg (27.5-34.5); MEAN CORPUSCULAR HGB CONC 34.2 g/dL (33.2-36.2); MEAN CORPUSCULAR VOLUME 97.7 fL (81-97); MEAN PLATELET VOLUME 7.3 fL (7.4-10.4); MONOCYTES # (AUTO) 0.73 x10^3/uL (0.2-0.8); MONOCYTES % (AUTO) 16 % (2-9); NEUTROPHILS # (AUTO) 3.05 x10^3/uL (1.8-6.8); NEUTROPHILS % (AUTO) 65 % (42-75); PLATELET COUNT 162 x10^3/uL (130-400); RED BLOOD COUNT 3.58 x10^6/uL (4.38-5.82); RED CELL DISTRIBUTION WIDTH 14.5 % (9.4-14.8)
[2018-02-05 08:30] VITALS: BP 125/78
[2018-02-05] MEDS: RIVAROXABAN 15 MG TABLET PO SCH ×2 (08:34→18:24)
[2018-02-05] MEDS: FAMOTIDINE 20 MG/2 ML IVPush SCH ×2 (08:34→20:20)
[2018-02-05] MEDS: AMLODIPINE 5 MG TABLET PO SCH (08:34)
[2018-02-05] MEDS: BENAZEPRIL 10 MG TABLET PO SCH (08:34)
[2018-02-05 14:25] VITALS: BP 144/85
[2018-02-05] MEDS: NICOTINE 7 MG/24 HR PATCH.TD24 TD SCH (16:49)
[2018-02-05 19:04] LABS: AMPHETAMINE SCREEN, URINE Negative (Negative); BARBITURATE SCREEN, URINE Negative (Negative); BENZODIAZEPINE SCREEN, URINE Negative (Negative); CANNABINOID SCREEN, URINE Negative (Negative); COCAINE SCREEN, URINE Negative (Negative); METHADONE SCREEN, URINE Negative (Negative); OPIATE SCREEN, URINE Positive (Negative)
[2018-02-05 20:11] VITALS: BP 167/87
[2018-02-05] MEDS: LORazepam 0.5MG TABLET PO PRN (23:14)
[2018-02-06 02:55] VITALS: BP 155/75
[2018-02-06 07:00] LABS: BASOPHILS # (AUTO) 0.02 x10^3/uL (0-0.1); BASOPHILS % (AUTO) 0 % (0-1); EOSINOPHILS # (AUTO) 0.09 x10^3/uL (0-0.4); EOSINOPHILS % (AUTO) 2 % (1-7); LYMPHOCYTES # (AUTO) 1.06 x10^3/uL (1-3.4); LYMPHOCYTES % (AUTO) 26 % (22-44); MD NO; MEAN CORPUSCULAR HEMOGLOBIN 33.5 pg (27.5-34.5); MEAN CORPUSCULAR HGB CONC 34.6 g/dL (33.2-36.2); MEAN CORPUSCULAR VOLUME 96.7 fL (81-97); MEAN PLATELET VOLUME 6.9 fL (7.4-10.4); MONOCYTES # (AUTO) 0.79 x10^3/uL (0.2-0.8); MONOCYTES % (AUTO) 19 % (2-9); NEUTROPHILS # (AUTO) 2.18 x10^3/uL (1.8-6.8); NEUTROPHILS % (AUTO) 53 % (42-75); PLATELET COUNT 167 x10^3/uL (130-400); RED BLOOD COUNT 3.62 x10^6/uL (4.38-5.82); RED CELL DISTRIBUTION WIDTH 14.3 % (9.4-14.8)
[2018-02-06 07:12] LABS: ANION GAP 7 mmol/L (5-15); CALCIUM 8.8 mg/dL (8.5-10.1); CHLORIDE 103 mmol/L (98-107); CREATININE 0.77 mg/dL (0.7-1.3)
[2018-02-06 08:37] VITALS: BP 144/92
[2018-02-06] MEDS: LACTATED RINGERS 1,000 ML IV SCH ×3 (09:49→14:41)
[2018-02-06] MEDS: BENAZEPRIL 10 MG TABLET PO SCH (09:50)
[2018-02-06] MEDS: AMLODIPINE 5 MG TABLET PO SCH (09:50)
[2018-02-06] MEDS: FAMOTIDINE 20 MG/2 ML IVPush SCH (09:50)
[2018-02-06] MEDS: RIVAROXABAN 15 MG TABLET PO SCH ×2 (09:51→15:55)
[2018-02-06 10:49] LABS: OCCULT BLOOD POSITIVE (NEGATIVE)
[2018-02-06] MEDS: LORazepam 0.5MG TABLET PO PRN (11:21)
[2018-02-06 13:20] VITALS: BP 131/77
[2018-02-06] MEDS: NICOTINE 7 MG/24 HR PATCH.TD24 TD SCH (14:40)
[2018-02-06] MEDS ORDERED: HYDR-3240 PO (15:58)
== END 2018-02-06 17:07 | disposition home or self-care (01) | DRG 438 ==
LOC: ED 13:36 → EDIP 13:37 → ED 13:38 → 3NE 14:50
PROVIDERS: ADMIT Family Medicine; ATTEND Family Medicine
DX: K85.10 Biliary acute pancreatitis without necrosis or infection (principal); K55.069 Acute infarction of intestine, part and extent unspecified; K92.2 Gastrointestinal hemorrhage, unspecified; K70.10 Alcoholic hepatitis without ascites; K86.0 Alcohol-induced chronic pancreatitis; F10.10 Alcohol abuse, uncomplicated; F17.200 Nicotine dependence, unspecified, uncomplicated; G40.909 Epilepsy, unspecified, not intractable, without status epilepticus; I10 Essential (primary) hypertension; R59.9 Enlarged lymph nodes, unspecified; R79.89 Other specified abnormal findings of blood chemistry; K86.9 Disease of pancreas, unspecified; D64.9 Anemia, unspecified; Z71.41 Alcohol abuse counseling and surveillance of alcoholic; Z90.49 Acquired absence of other specified parts of digestive tract; Z80.9 Family history of malignant neoplasm, unspecified; Z71.6 Tobacco abuse counseling
CPT/HCPCS: 36415; 99285; S0028; 74177; 80048; 80053; 80061; 80307; 82272; 83615; 83690; 83735; 84100; 85025; J2405; Q9967; J2270; J7030; J7120

== ENCOUNTER 2018-06-22 16:33 | Inpatient (IN) | payer MEDICAID ==
[~2018-06-22] VITALS: Ht 172.7 cm; Wt 60.0 kg
[~2018-06-22 16:33] MED LIST changes: +AMLO-150 PO; -AMLO5TAB2 PO; -HYDR12.58 PO; +HYDROCHLOROTH12.5 MG PO
[2018-06-22 16:58] LABS: BASOPHILS # (AUTO) 0.01 x10^3/uL (0-0.1); BASOPHILS % (AUTO) 0 % (0-1); EOSINOPHILS # (AUTO) 0.02 x10^3/uL (0-0.4); EOSINOPHILS % (AUTO) 0 % (1-7); LYMPHOCYTES # (AUTO) 0.88 x10^3/uL (1-3.4); LYMPHOCYTES % (AUTO) 14 % (22-44); MD NO; MEAN CORPUSCULAR HEMOGLOBIN 33.6 pg (27.5-34.5); MEAN CORPUSCULAR HGB CONC 35.3 g/dL (33.2-36.2); MEAN CORPUSCULAR VOLUME 95.4 fL (81-97); MEAN PLATELET VOLUME 7.3 fL (7.4-10.4); MONOCYTES # (AUTO) 0.67 x10^3/uL (0.2-0.8); MONOCYTES % (AUTO) 10 % (2-9); NEUTROPHILS # (AUTO) 4.92 x10^3/uL (1.8-6.8); NEUTROPHILS % (AUTO) 76 % (42-75); PLATELET COUNT 253 x10^3/uL (130-400); RED BLOOD COUNT 5.22 x10^6/uL (4.38-5.82)
[2018-06-22] MEDS ORDERED: FERR325T18 PO (16:59)
[2018-06-22] MEDS ORDERED: AMLO10TA6 PO (16:59)
[2018-06-22] MEDS ORDERED: ONDANSETRON 2MG/ML, 2ML IVPush ONE (17:00)
[2018-06-22] MEDS ORDERED: HYDROmorphone 2 MG/ML, 1ML IVPush PRN (17:00)
[2018-06-22] MEDS ORDERED: ONDANSETRON 2MG/ML, 2ML ONE (17:06)
[2018-06-22] MEDS ORDERED: HYDROmorphone 2 MG/ML, 1ML ONE (17:06)
[2018-06-22 17:08] LABS: ALANINE AMINOTRANSFERASE 574 U/L (12-78); ALBUMIN 4.6 g/dL (3.4-5.0); ANION GAP 12 mmol/L (5-15); CALCIUM 9.5 mg/dL (8.5-10.1); CHLORIDE 90 mmol/L (98-107); CREATININE 1.04 mg/dL (0.7-1.3)
[2018-06-22 17:22] LABS: ALKALINE PHOSPHATASE 1192 U/L (45-117); BILIRUBIN,TOTAL 9.4 mg/dL (0.2-1.0); TOTAL PROTEIN 8.8 g/dL (6.4-8.2)
--- NOTE | 2018-06-22 18:05 | NUR ---
pt upright on gurney awake & comfortable, watching TV, NAD, comfort measures provided, call light within reach.
--- NOTE | 2018-06-22 18:10 | NUR ---
pt unable to provide urine sample despite mult attempts- ERP aware.
--- NOTE | 2018-06-22 18:54 | NUR ---
report given to Leighann
--- NOTE | 2018-06-22 19:03 | NUR ---
pt resting calmly watching tv, denies needs at this time, monitors in place, call light within reach, pt stated he is "unable to void at this time"
[2018-06-22] MEDS ORDERED: SODIUM CHLORIDE FLUSH 10ML SYR IVF PRN (19:30)
[2018-06-22] MEDS ORDERED: POLYETHYLENE GLYCOL 17 GM PACKET PO PRN (19:30)
[2018-06-22] MEDS ORDERED: DOCUSATE 100 MG CAPSULE PO PRN (19:30)
[2018-06-22] MEDS ORDERED: DIPHENHYDRAMINE 50 MG CAPSULE PO PRN (19:30)
[2018-06-22] MEDS ORDERED: OXYcodone IR 5MG TABLET PO PRN (19:30)
[2018-06-22] MEDS ORDERED: ONDANSETRON 2MG/ML, 2ML IVPush PRN (19:30)
[2018-06-22] MEDS ORDERED: RIVAROXABAN 15 MG TABLET PO SCH (20:00)
[2018-06-22 20:15] VITALS: BP 131/88
[2018-06-22] MEDS ORDERED: LORazepam 2 MG/ML, 1ML IV PRN ×5 (20:30)
[2018-06-22] MEDS ORDERED: LORazepam 0.5MG TABLET PO PRN (20:30)
[2018-06-22] MEDS: SODIUM CHLORIDE 0.9% 1,000 ML IV SCH (20:49)
[2018-06-22] MEDS: NICOTINE 7 MG/24 HR PATCH.TD24 TD SCH (20:50)
[2018-06-23 02:13] LABS: CULTURE INDICATED? YES; MICROSCOPIC INDICATED
[2018-06-23 02:15] VITALS: BP 116/73
[2018-06-23] MEDS: SODIUM CHLORIDE 0.9% 1,000 ML IV SCH ×2 (02:19→09:59)
[2018-06-23 06:09] LABS: BASOPHILS # (AUTO) 0.01 x10^3/uL (0-0.1); BASOPHILS % (AUTO) 0 % (0-1); EOSINOPHILS # (AUTO) 0.08 x10^3/uL (0-0.4); EOSINOPHILS % (AUTO) 1 % (1-7); LYMPHOCYTES % (AUTO) 18 % (22-44); MD NO; MEAN CORPUSCULAR HEMOGLOBIN 33.5 pg (27.5-34.5); MEAN CORPUSCULAR HGB CONC 35.1 g/dL (33.2-36.2); MEAN CORPUSCULAR VOLUME 95.3 fL (81-97); MEAN PLATELET VOLUME 7.8 fL (7.4-10.4); MONOCYTES # (AUTO) 0.72 x10^3/uL (0.2-0.8); MONOCYTES % (AUTO) 13 % (2-9); NEUTROPHILS # (AUTO) 3.85 x10^3/uL (1.8-6.8); NEUTROPHILS % (AUTO) 68 % (42-75); PLATELET COUNT 195 x10^3/uL (130-400); RED BLOOD COUNT 4.57 x10^6/uL (4.38-5.82); RED CELL DISTRIBUTION WIDTH 14.9 % (9.4-14.8)
[2018-06-23 06:16] LABS: ALBUMIN 3.9 g/dL (3.4-5.0); ANION GAP 9 mmol/L (5-15); CALCIUM 8.7 mg/dL (8.5-10.1); CHLORIDE 96 mmol/L (98-107)
[2018-06-23 06:31] LABS: ALANINE AMINOTRANSFERASE 615 U/L (12-78); ALKALINE PHOSPHATASE 1042 U/L (45-117); BILIRUBIN,TOTAL 7.7 mg/dL (0.2-1.0); CREATININE 0.87 mg/dL (0.7-1.3); TOTAL PROTEIN 7.3 g/dL (6.4-8.2)
[2018-06-23 07:30] VITALS: BP 142/91
[2018-06-23] MEDS: HYDROmorphone 2 MG/ML, 1ML IVPush PRN ×2 (07:58→12:16)
[2018-06-23] MEDS ORDERED: RIVAROXABAN 20 MG TABLET PO SCH (09:00)
[2018-06-23] MEDS: THIAMINE 100MG TABLET PO SCH (09:59)
[2018-06-23] MEDS: FOLIC ACID 1 MG TABLET PO SCH (09:59)
[2018-06-23] MEDS: AMLODIPINE 10 MG TAB PO SCH (09:59)
[2018-06-23] MEDS: LACTATED RINGERS 1,000 ML IV SCH ×2 (12:41→19:26)
[2018-06-23 14:40] LABS: MICROSCOPIC INDICATED
[2018-06-23 14:55] VITALS: BP 113/72
[2018-06-23] MEDS: NICOTINE 7 MG/24 HR PATCH.TD24 TD SCH (19:26)
[2018-06-23 20:35] VITALS: BP 120/71
[2018-06-24 01:16] VITALS: BP 122/77
[2018-06-24] MEDS: LACTATED RINGERS 1,000 ML IV SCH ×3 (01:31→19:43)
[2018-06-24] MEDS: HYDROmorphone 2 MG/ML, 1ML IVPush PRN ×3 (01:31→23:11)
[2018-06-24 05:34] LABS: BASOPHILS # (AUTO) 0.04 x10^3/uL (0-0.1); BASOPHILS % (AUTO) 1 % (0-1); EOSINOPHILS % (AUTO) 6 % (1-7); LYMPHOCYTES # (AUTO) 0.99 x10^3/uL (1-3.4); LYMPHOCYTES % (AUTO) 30 % (22-44); MD NO; MEAN CORPUSCULAR HGB CONC 35.6 g/dL (33.2-36.2); MEAN CORPUSCULAR VOLUME 95.5 fL (81-97); MONOCYTES % (AUTO) 15 % (2-9); NEUTROPHILS # (AUTO) 1.55 x10^3/uL (1.8-6.8); NEUTROPHILS % (AUTO) 47 % (42-75); PLATELET COUNT 162 x10^3/uL (130-400); RED BLOOD COUNT 4.12 x10^6/uL (4.38-5.82); RED CELL DISTRIBUTION WIDTH 15.3 % (9.4-14.8)
[2018-06-24 05:35] LABS: INTERNATIONAL NORMALIZED RATIO 1.34 (0.93-1.1)
[2018-06-24 05:43] LABS: ALBUMIN 3.2 g/dL (3.4-5.0); ANION GAP 6 mmol/L (5-15); CALCIUM 8.4 mg/dL (8.5-10.1); CHLORIDE 105 mmol/L (98-107)
[2018-06-24 06:01] LABS: ALANINE AMINOTRANSFERASE 590 U/L (12-78); ALKALINE PHOSPHATASE 967 U/L (45-117); BILIRUBIN,TOTAL 8.1 mg/dL (0.2-1.0); CREATININE 0.74 mg/dL (0.7-1.3); TOTAL PROTEIN 6.1 g/dL (6.4-8.2)
[2018-06-24 08:00] VITALS: BP 139/85
[2018-06-24] MEDS: FOLIC ACID 1 MG TABLET PO SCH (09:00)
[2018-06-24] MEDS: THIAMINE 100MG TABLET PO SCH (09:00)
[2018-06-24] MEDS: AMLODIPINE 10 MG TAB PO SCH (09:00)
[2018-06-24] MEDS ORDERED: CHLORHEXIDINE 15 ML UDC ONE (09:06)
[2018-06-24] MEDS ORDERED: TRIAMCINOLONE ACETONIDE 40 MG/ML, 1ML ONE (09:54)
[2018-06-24] MEDS ORDERED: ETHYL ALCOHOL 98%, 5 ML ONE (09:54)
[2018-06-24] MEDS ORDERED: BUPIVACAINE/PF 0.25% ONE (09:54)
[2018-06-24] MEDS ORDERED: PIPERACILLIN/TAZO/PMX 3.375GM 50 ML ONE (09:57)
[2018-06-24] MEDS ORDERED: OXYcodone 5 MG/5 ML ORAL.SOL UDC PO PRN (10:30)
[2018-06-24] MEDS ORDERED: METOCLOPRAMIDE 5 MG/ML, 2ML IV PRN (10:30)
[2018-06-24] MEDS ORDERED: LORazepam 2 MG/ML, 1ML IVPush PRN (10:30)
[2018-06-24] MEDS ORDERED: FENTANYL PF 100 MCG/2ML IV PRN (10:30)
[2018-06-24] MEDS ORDERED: HYDROmorphone 2 MG/ML, 1ML IVPush PRN (10:30)
[2018-06-24] MEDS ORDERED: MEPERIDINE/PF 25MG/0.5ML IVPush PRN (10:30)
[2018-06-24 14:00] VITALS: BP 155/95
[2018-06-24] MEDS ORDERED: HYDROmorphone 2 MG/ML, 1ML ONE (16:17)
[2018-06-24] MEDS ORDERED: HYDROmorphone 1 MG/ML, 1ML IV ONE (16:30)
[2018-06-24] MEDS: NICOTINE 7 MG/24 HR PATCH.TD24 TD SCH (19:41)
[2018-06-24 20:10] VITALS: BP 152/94
[2018-06-25 00:29] VITALS: BP 134/41
[2018-06-25 01:30] VITALS: BP 145/81
[2018-06-25] MEDS: HYDROmorphone 2 MG/ML, 1ML IVPush PRN ×3 (02:46→21:30)
[2018-06-25] MEDS: LACTATED RINGERS 1,000 ML IV SCH ×3 (02:46→21:29)
[2018-06-25 05:32] LABS: CHLORIDE 101 mmol/L (98-107)
[2018-06-25 05:44] LABS: ALANINE AMINOTRANSFERASE 419 U/L (12-78); ALBUMIN 3.2 g/dL (3.4-5.0); ALKALINE PHOSPHATASE 945 U/L (45-117); ANION GAP 5 mmol/L (5-15); BILIRUBIN,TOTAL 3.7 mg/dL (0.2-1.0); CALCIUM 8.4 mg/dL (8.5-10.1); CREATININE 0.72 mg/dL (0.7-1.3); TOTAL PROTEIN 6.3 g/dL (6.4-8.2)
[2018-06-25 07:13] VITALS: BP 135/82
[2018-06-25] MEDS: AMLODIPINE 10 MG TAB PO SCH (08:25)
[2018-06-25] MEDS ORDERED: CEFAZOLIN PMX 2GM/50ML 50 ML IVPB ONE (11:30)
[2018-06-25 20:00] VITALS: BP 145/83
[2018-06-25] MEDS: NICOTINE 7 MG/24 HR PATCH.TD24 TD SCH (21:26)
[2018-06-26 04:00] VITALS: BP 151/102
[2018-06-26] MEDS: HYDROmorphone 2 MG/ML, 1ML IVPush PRN ×2 (04:04→08:32)
[2018-06-26] MEDS: LACTATED RINGERS 1,000 ML IV SCH (04:05)
[2018-06-26 04:40] VITALS: BP 148/88
[2018-06-26 05:35] LABS: BASOPHILS % (AUTO) 0 % (0-1); EOSINOPHILS # (AUTO) 0.01 x10^3/uL (0-0.4); EOSINOPHILS % (AUTO) 0 % (1-7); LYMPHOCYTES % (AUTO) 8 % (22-44); MD NO; MEAN CORPUSCULAR HEMOGLOBIN 33.1 pg (27.5-34.5); MEAN CORPUSCULAR HGB CONC 34.2 g/dL (33.2-36.2); MEAN CORPUSCULAR VOLUME 96.8 fL (81-97); MEAN PLATELET VOLUME 8.1 fL (7.4-10.4); MONOCYTES # (AUTO) 0.66 x10^3/uL (0.2-0.8); MONOCYTES % (AUTO) 7 % (2-9); NEUTROPHILS # (AUTO) 7.47 x10^3/uL (1.8-6.8); NEUTROPHILS % (AUTO) 85 % (42-75); PLATELET COUNT 192 x10^3/uL (130-400); RED BLOOD COUNT 4.03 x10^6/uL (4.38-5.82); RED CELL DISTRIBUTION WIDTH 14.7 % (9.4-14.8)
[2018-06-26 05:41] LABS: CHLORIDE 103 mmol/L (98-107)
[2018-06-26 06:14] LABS: ALANINE AMINOTRANSFERASE 308 U/L (12-78); ALBUMIN 3.3 g/dL (3.4-5.0); ALKALINE PHOSPHATASE 842 U/L (45-117); ANION GAP 8 mmol/L (5-15); BILIRUBIN,TOTAL 2.9 mg/dL (0.2-1.0); CALCIUM 8.7 mg/dL (8.5-10.1); CREATININE 0.62 mg/dL (0.7-1.3); TOTAL PROTEIN 6.6 g/dL (6.4-8.2)
[2018-06-26 07:09] VITALS: BP 148/88
[2018-06-26] MEDS: RIVAROXABAN 20 MG TABLET PO SCH (08:24)
[2018-06-26] MEDS: AMLODIPINE 10 MG TAB PO SCH (08:24)
[2018-06-26] MEDS ORDERED: OMNIPAQUE 350 MG/ML, 100ML BOTTLE ONE (10:03)
[2018-06-26 13:13] VITALS: BP 133/92
[2018-06-26] MEDS: OXYcodone IR 5MG TABLET PO PRN ×2 (15:53→19:40)
[2018-06-26] MEDS: NICOTINE 7 MG/24 HR PATCH.TD24 TD SCH (19:36)
[2018-06-26 19:40] VITALS: BP 150/74
[2018-06-27 03:58] VITALS: BP 123/84
[2018-06-27 05:35] LABS: INTERNATIONAL NORMALIZED RATIO 1.2 (0.93-1.1); PROTHROMBIN TIME 12.6 Seconds (9.6-11.5)
[2018-06-27 05:40] LABS: ALBUMIN 3.6 g/dL (3.4-5.0); CALCIUM 8.9 mg/dL (8.5-10.1); CHLORIDE 103 mmol/L (98-107)
[2018-06-27 05:48] LABS: ALANINE AMINOTRANSFERASE 247 U/L (12-78); ALKALINE PHOSPHATASE 789 U/L (45-117); ANION GAP 6 mmol/L (5-15); BILIRUBIN,TOTAL 2.8 mg/dL (0.2-1.0); CREATININE 0.81 mg/dL (0.7-1.3); TOTAL PROTEIN 7.2 g/dL (6.4-8.2)
[2018-06-27] MEDS: OXYcodone IR 5MG TABLET PO PRN (06:43)
[2018-06-27 07:34] VITALS: BP 135/83
[2018-06-27] MEDS: RIVAROXABAN 20 MG TABLET PO SCH (08:02)
[2018-06-27] MEDS: AMLODIPINE 10 MG TAB PO SCH (08:58)
[2018-06-27] MEDS ORDERED: NICO-485 TD (10:01)
[2018-06-27] MEDS ORDERED: OXYC5TAB3 PO (10:01)
[2018-06-27] MEDS ORDERED: ONDA4TAB7 PO (13:38)
[2018-06-27 13:48] VITALS: BP 149/94
== END 2018-06-27 14:28 | disposition home or self-care (01) | DRG 438 ==
LOC: ED 18:15 → EDIP 19:12 → 3NE 20:00
PROVIDERS: ADMIT Family Medicine; ATTEND Family Medicine
PROC: 0FBG3ZX Excision of Pancreas, Percutaneous Approach, Diagnostic (ICD-10-PCS; 2018-06-24)
PROC: 0FJ Hepatobiliary System and Pancreas, Inspection (ICD-10-PCS; 2018-06-24)
PROC: 0DB98ZX Excision of Duodenum, Via Natural or Artificial Opening Endoscopic, Diagnostic (ICD-10-PCS; principal; 2018-06-24 10:00)
PROC: 0F9930Z Drainage of Common Bile Duct with Drainage Device, Percutaneous Approach (ICD-10-PCS; 2018-06-25)
PROC: 0F9530Z Drainage of Right Hepatic Duct with Drainage Device, Percutaneous Approach (ICD-10-PCS; 2018-06-25)
PROC: 0F9730Z Drainage of Common Hepatic Duct with Drainage Device, Percutaneous Approach (ICD-10-PCS; 2018-06-25)
DX: K85.10 Biliary acute pancreatitis without necrosis or infection (principal); K83.1 Obstruction of bile duct; K31.5 Obstruction of duodenum; K86.2 Cyst of pancreas; E86.0 Dehydration; K86.1 Other chronic pancreatitis; F10.21 Alcohol dependence, in remission; K86.9 Disease of pancreas, unspecified; F17.210 Nicotine dependence, cigarettes, uncomplicated; G89.29 Other chronic pain; I10 Essential (primary) hypertension; Z79.01 Long term (current) use of anticoagulants; Z80.0 Family history of malignant neoplasm of digestive organs; Z86.718 Personal history of other venous thrombosis and embolism
CPT/HCPCS: 36415; 47534; 74170; 74181; 76000; 80053; 81001; 83690; 83735; 85025; 85610; 86301; 87086; 88172; 88173; 88177; 88305; 96374; 96375; 99156; 99157; G0378; J1170; J2250; J2405; J2543; J2704; J3010; J3301; J3490; Q9967; C1729; C1751; C1769; C1894; J0330; J2310; J7030; J7120

== ENCOUNTER 2018-07-16 13:21 | Inpatient (IN) | payer MEDICAID ==
[~2018-07-16] VITALS: Ht 172.7 cm; Wt 66.0 kg
[~2018-07-16 13:21] MED LIST changes: +AMLO10TA8 PO; +FERR325T18 PO; +ONDA4TAB7 PO
[2018-07-16 14:25] LABS: MEAN CORPUSCULAR HEMOGLOBIN 33.1 pg (27.5-34.5); MEAN CORPUSCULAR VOLUME 94.5 fL (81-97); MEAN PLATELET VOLUME 6.5 fL (7.4-10.4); PLATELET COUNT 316 x10^3/uL (130-400); RED BLOOD COUNT 4.92 x10^6/uL (4.38-5.82); RED CELL DISTRIBUTION WIDTH 13.4 % (9.4-14.8)
[2018-07-16] MEDS ORDERED: ONDANSETRON 2MG/ML, 2ML IVPush ONE (14:30)
[2018-07-16 14:36] LABS: ALANINE AMINOTRANSFERASE 19 U/L (12-78); ANION GAP 6 mmol/L (5-15); CALCIUM 9.8 mg/dL (8.5-10.1); CHLORIDE 97 mmol/L (98-107); CREATININE 0.88 mg/dL (0.7-1.3)
[2018-07-16 14:38] LABS: ALKALINE PHOSPHATASE 267 U/L (45-117); BILIRUBIN,TOTAL 1.4 mg/dL (0.2-1.0); TOTAL PROTEIN 8.7 g/dL (6.4-8.2)
[2018-07-16] MEDS ORDERED: ONDANSETRON 2MG/ML, 2ML ONE (14:47)
[2018-07-16] MEDS ORDERED: HYDROmorphone 2 MG/ML, 1ML ONE (14:48)
[2018-07-16] MEDS: HYDROmorphone 2 MG/ML, 1ML IVPush PRN ×2 (14:51→16:57)
[2018-07-16 15:06] LABS: MD YES
[2018-07-16 15:10] LABS: LYMPH#(MANUAL) 0.31 x10^3/uL (1-3.4); LYMPHS% (MANUAL) 2 % (22-44); MONOS#(MANUAL) 0.16 x10^3/uL (0.3-2.7); MONOS% (MANUAL) 1 % (2-9); SEG#(MANUAL) 15.13 x10^3/uL (1.8-6.8); SEGS% (MANUAL) 97 % (42-75)
[2018-07-16 15:11] LABS: <PLATELET ESTIMATE> ADEQUATE; <PLT MORPHOLOGY> NORMAL PLT MORPH; <RBC MORPHOLOGY> NORMAL
[2018-07-16] MEDS ORDERED: OMNIPAQUE 350 MG/ML, 100ML BOTTLE ONE (15:30)
--- NOTE | 2018-07-16 15:38 | NUR ---
FIRST CONTACT WITH PT. PT SITTING UP IN JENNI MORALES NOTED. PT REPORTS IMPROVEMENT IN PAIN WITH MEDICATIONS, 01/29 AND DENIES NEED FOR FURTHER MEDICATIONS FOR PAIN MANAGEMENT. PT UPDATED TO POC (RESULTS/RECHECK) AND DEMONSTRATES UNDERSTANDING.
[2018-07-16] MEDS ORDERED: SODIUM CHLORIDE 0.9% 1,000ML IVBOLUS ONE (16:00)
--- NOTE | 2018-07-16 16:45 | NUR ---
PT RESTING COMFORTABLY IN JENNI MORALES. AWAITING BED ASSIGNMENT
--- NOTE | 2018-07-16 16:55 | NUR ---
REPORT TO YANN CHATMAN. PT PREPARED FOR TRANSPORT
[2018-07-16] MEDS ORDERED: NS + 20MEQ KCL 1,000 ML IV SCH (17:09)
[2018-07-16] MEDS ORDERED: morphine SULFATE 10 MG/ML, 1ML IVPush PRN (17:30)
[2018-07-16] MEDS ORDERED: IBUPROFEN 600 MG TABLET PO PRN (17:30)
[2018-07-16] MEDS ORDERED: ACETAMINOPHEN 325 MG TABLET PO PRN (17:30)
[2018-07-16] MEDS ORDERED: ENALAPRILAT 1.25 MG/ML, 2ML IVPush PRN (17:30)
[2018-07-16] MEDS ORDERED: ONDANSETRON ODT 4 MG PO PRN (17:30)
[2018-07-16] MEDS: POTASSIUM CHLORIDE 20 MEQ in LACTATED RINGERS 1,000 ML IV SCH (18:01)
[2018-07-16 20:11] VITALS: BP 109/75
[2018-07-16] MEDS: OXYcodone IR 5MG TABLET PO PRN (20:37)
[2018-07-16] MEDS: ONDANSETRON 4 MG TABLET PO PRN (20:37)
[2018-07-17] MEDS: POTASSIUM CHLORIDE 20 MEQ in LACTATED RINGERS 1,000 ML IV SCH (00:39)
[2018-07-17 00:51] LABS: MICROSCOPIC NOT IND
[2018-07-17 00:52] VITALS: BP 114/74
[2018-07-17 00:52] LABS: CULTURE INDICATED? NO
[2018-07-17] MEDS ORDERED: CIPROFLOXACIN 500 MG TABLET PO SCH (03:00)
[2018-07-17] MEDS: metroNIDAZOLE 500 MG TABLET PO SCH ×2 (03:26→11:27)
[2018-07-17] MEDS: OXYcodone IR 5MG TABLET PO PRN ×3 (03:26→20:42)
[2018-07-17 03:28] VITALS: BP 144/84
[2018-07-17 05:11] LABS: BASOPHILS % (AUTO) 0 % (0-1); EOSINOPHILS # (AUTO) 0.01 x10^3/uL (0-0.4); EOSINOPHILS % (AUTO) 0 % (1-7); LYMPHOCYTES # (AUTO) 0.56 x10^3/uL (1-3.4); LYMPHOCYTES % (AUTO) 8 % (22-44); MD NO; MEAN CORPUSCULAR HEMOGLOBIN 33.4 pg (27.5-34.5); MEAN CORPUSCULAR HGB CONC 35.7 g/dL (33.2-36.2); MEAN CORPUSCULAR VOLUME 93.7 fL (81-97); MEAN PLATELET VOLUME 6.8 fL (7.4-10.4); MONOCYTES # (AUTO) 0.77 x10^3/uL (0.2-0.8); MONOCYTES % (AUTO) 11 % (2-9); NEUTROPHILS # (AUTO) 5.85 x10^3/uL (1.8-6.8); NEUTROPHILS % (AUTO) 81 % (42-75); PLATELET COUNT 241 x10^3/uL (130-400); RED BLOOD COUNT 3.59 x10^6/uL (4.38-5.82); RED CELL DISTRIBUTION WIDTH 13.6 % (9.4-14.8)
[2018-07-17 05:14] LABS: ALANINE AMINOTRANSFERASE 13 U/L (12-78); ALBUMIN 2.9 g/dL (3.4-5.0); ANION GAP 3 mmol/L (5-15); CALCIUM 8.4 mg/dL (8.5-10.1); CHLORIDE 99 mmol/L (98-107)
[2018-07-17 05:16] LABS: ALKALINE PHOSPHATASE 202 U/L (45-117); TOTAL PROTEIN 6.3 g/dL (6.4-8.2)
[2018-07-17] MEDS ORDERED: SODIUM CHLORIDE 0.9% 250 ML IV SCH (06:00)
[2018-07-17 07:50] VITALS: BP 129/81
[2018-07-17] MEDS: THIAMINE 100MG TABLET PO SCH (09:08)
[2018-07-17] MEDS: FOLIC ACID 1 MG TABLET PO SCH (09:08)
[2018-07-17] MEDS: FERROUS SULFATE 325 MG TABLET PO SCH (09:08)
[2018-07-17] MEDS: AMLODIPINE 10 MG TAB PO SCH (09:08)
[2018-07-17 12:34] LABS: ANION GAP 6 mmol/L (5-15); CALCIUM 8.5 mg/dL (8.5-10.1); CHLORIDE 99 mmol/L (98-107); CREATININE 0.74 mg/dL (0.7-1.3)
[2018-07-17 13:51] VITALS: BP 100/65
[2018-07-17] MEDS ORDERED: TEMPLATE NON-FORMULARY MED. (Rivaroxaban** (Xarelto**) 15 MG) PO SCH (17:00)
[2018-07-17] MEDS: NS + 20MEQ KCL 1,000 ML IV SCH (18:08)
[2018-07-17 19:38] VITALS: BP 108/60
[2018-07-18] MEDS: OXYcodone IR 5MG TABLET PO PRN ×2 (00:29→09:36)
[2018-07-18 00:44] VITALS: BP 99/63
[2018-07-18] MEDS: NS + 20MEQ KCL 1,000 ML IV SCH ×2 (03:29→17:00)
[2018-07-18 05:52] LABS: BASOPHILS # (AUTO) 0.01 x10^3/uL (0-0.1); BASOPHILS % (AUTO) 0 % (0-1); EOSINOPHILS # (AUTO) 0.09 x10^3/uL (0-0.4); EOSINOPHILS % (AUTO) 1 % (1-7); LYMPHOCYTES # (AUTO) 1.09 x10^3/uL (1-3.4); LYMPHOCYTES % (AUTO) 14 % (22-44); MD NO; MEAN CORPUSCULAR HEMOGLOBIN 33.1 pg (27.5-34.5); MEAN CORPUSCULAR HGB CONC 35.5 g/dL (33.2-36.2); MEAN CORPUSCULAR VOLUME 93.4 fL (81-97); MEAN PLATELET VOLUME 6.6 fL (7.4-10.4); MONOCYTES # (AUTO) 0.92 x10^3/uL (0.2-0.8); MONOCYTES % (AUTO) 12 % (2-9); NEUTROPHILS # (AUTO) 5.89 x10^3/uL (1.8-6.8); NEUTROPHILS % (AUTO) 74 % (42-75); PLATELET COUNT 246 x10^3/uL (130-400); RED CELL DISTRIBUTION WIDTH 13.4 % (9.4-14.8)
[2018-07-18 06:04] LABS: ANION GAP 7 mmol/L (5-15); CALCIUM 7.9 mg/dL (8.5-10.1); CHLORIDE 101 mmol/L (98-107)
[2018-07-18 06:05] LABS: CREATININE 0.71 mg/dL (0.7-1.3)
[2018-07-18 06:18] LABS: CHLORIDE,URINE RANDOM 152 mmol/L; POTASSIUM,URINE RANDOM 17 mmol/L; SODIUM,URINE RANDOM 137 mmol/L
[2018-07-18 06:35] VITALS: BP 126/77
[2018-07-18 06:41] LABS: OSMOLALITY,URINE 417 mOsm/kg (500-850)
[2018-07-18] MEDS ORDERED: RIVAROXABAN 15 MG TABLET PO SCH (09:00)
[2018-07-18] MEDS: ONDANSETRON 4 MG TABLET PO PRN (09:36)
[2018-07-18] MEDS: FOLIC ACID 1 MG TABLET PO SCH (09:36)
[2018-07-18] MEDS: FERROUS SULFATE 325 MG TABLET PO SCH (09:36)
[2018-07-18] MEDS: THIAMINE 100MG TABLET PO SCH (09:36)
[2018-07-18] MEDS: AMLODIPINE 10 MG TAB PO SCH (09:37)
[2018-07-18 12:49] VITALS: BP 112/68
[2018-07-18] MEDS ORDERED: RIVA15TA PO (17:36)
[2018-07-18] MEDS ORDERED: OXYC-302 PO (17:36)
[2018-07-18 18:07] VITALS: BP 125/75
== END 2018-07-18 18:06 | disposition home or self-care (01) | DRG 640 ==
LOC: ED 16:33 → 4NOR 16:34 → INTOOBSV 16:34 → OBSVTOIN 16:35
PROVIDERS: ADMIT Family Medicine; ATTEND Family Medicine
DX: E87.1 Hypo-osmolality and hyponatremia (principal); K85.90 Acute pancreatitis without necrosis or infection, unspecified; K86.0 Alcohol-induced chronic pancreatitis; F17.210 Nicotine dependence, cigarettes, uncomplicated; G40.909 Epilepsy, unspecified, not intractable, without status epilepticus; I10 Essential (primary) hypertension; F10.20 Alcohol dependence, uncomplicated; R07.9 Chest pain, unspecified; R63.4 Abnormal weight loss; D72.829 Elevated white blood cell count, unspecified; E87.6 Hypokalemia; Z80.9 Family history of malignant neoplasm, unspecified; Z79.01 Long term (current) use of anticoagulants; Z86.718 Personal history of other venous thrombosis and embolism; Z90.49 Acquired absence of other specified parts of digestive tract
CPT/HCPCS: 36415; 71046; 74177; 80048; 80053; 81003; 82436; 82570; 83690; 83935; 84133; 84300; 85025; 87040; 96361; 96374; G0378; J1170; J2405; J3480; Q0162; Q9967; J7030; J7050; J7120

== ENCOUNTER 2018-08-19 16:22 | Emergency (ER) | payer MEDICAID ==
[~2018-08-19] VITALS: Ht 172.7 cm; Wt 56.1 kg
[~2018-08-19 16:22] MED LIST changes: +OXYC-302 PO
[2018-08-19 16:25] VITALS: BP 158/94
[2018-08-19] MEDS ORDERED: OXYcodone/APAP 5/325MG TABLET ONE (16:51)
--- NOTE | 2018-08-19 16:58 | NUR ---
drain site with clean and dry dressing in place
[2018-08-19] MEDS ORDERED: OXYcodone/APAP 5/325MG TABLET PO ONE (17:00)
--- NOTE | 2018-08-19 17:09 | NUR ---
Discharge instructions discussed with patient, verbalizes understanding. Patient instructed not to drive home, verbalizes understanding. Family member with patient at time of discharge.
== END 2018-08-19 17:12 | disposition home or self-care (01) ==
LOC: ED 17:10
DX: R10.9 Unspecified abdominal pain (principal); I10 Essential (primary) hypertension; G40.909 Epilepsy, unspecified, not intractable, without status epilepticus; Z90.49 Acquired absence of other specified parts of digestive tract; Z87.19 Personal history of other diseases of the digestive system
CPT/HCPCS: 99282

== ENCOUNTER 2018-11-24 00:07 | Emergency (ER) | payer MEDICAID ==
[~2018-11-24] VITALS: Ht 172.7 cm; Wt 61.5 kg
--- NOTE | 2018-11-24 00:32 | NUR ---
pt to room from lobby
--- NOTE | 2018-11-24 01:00 | NUR ---
ERP WAS IN TO SEE PT. POC RV'WD WITH HIM. SIGNIFICANT OTHER AT BS.
[2018-11-24] MEDS ORDERED: ONDANSETRON 2MG/ML, 2ML ONE (01:16)
--- NOTE | 2018-11-24 01:28 | NUR ---
Saroj : [phone]
[2018-11-24 01:29] LABS: BASOPHILS # (AUTO) 0.02 x10^3/uL (0-0.1); BASOPHILS % (AUTO) 1 % (0-1); EOSINOPHILS # (AUTO) 0.12 x10^3/uL (0-0.4); EOSINOPHILS % (AUTO) 3 % (1-7); LYMPHOCYTES # (AUTO) 1.15 x10^3/uL (1-3.4); LYMPHOCYTES % (AUTO) 31 % (22-44); MD NO; MEAN CORPUSCULAR HEMOGLOBIN 30.5 pg (27.5-34.5); MEAN CORPUSCULAR HGB CONC 32.8 g/dL (33.2-36.2); MEAN CORPUSCULAR VOLUME 93.2 fL (81-97); MEAN PLATELET VOLUME 6.8 fL (7.4-10.4); MONOCYTES # (AUTO) 0.57 x10^3/uL (0.2-0.8); MONOCYTES % (AUTO) 15 % (2-9); NEUTROPHILS # (AUTO) 1.82 x10^3/uL (1.8-6.8); NEUTROPHILS % (AUTO) 50 % (42-75); PLATELET COUNT 259 x10^3/uL (130-400); RED BLOOD COUNT 4.52 x10^6/uL (4.38-5.82); RED CELL DISTRIBUTION WIDTH 14.3 % (9.4-14.8)
[2018-11-24] MEDS ORDERED: ONDANSETRON 2MG/ML, 2ML IVPush ONE (01:30)
[2018-11-24 01:33] LABS: INTERNATIONAL NORMALIZED RATIO 1.02 (0.93-1.1); PROTHROMBIN TIME 10.7 Seconds (9.6-11.5)
[2018-11-24 01:36] LABS: ALANINE AMINOTRANSFERASE 17 U/L (12-78); ALBUMIN 3.8 g/dL (3.4-5.0); ANION GAP 5 mmol/L (5-15); CALCIUM 8.6 mg/dL (8.5-10.1); CHLORIDE 109 mmol/L (98-107); CREATININE 0.98 mg/dL (0.7-1.3)
[2018-11-24 01:38] LABS: ALKALINE PHOSPHATASE 172 U/L (45-117); BILIRUBIN,TOTAL 0.2 mg/dL (0.2-1.0); TOTAL PROTEIN 7.7 g/dL (6.4-8.2)
--- NOTE | 2018-11-24 01:38 | NUR ---
PT TO CT VIA [facility].
[2018-11-24] MEDS ORDERED: OMNIPAQUE 350 MG/ML, 100ML BOTTLE ONE (01:48)
--- NOTE | 2018-11-24 02:09 | NUR ---
REPORTED TO ELEAZAR LERNER.
--- NOTE | 2018-11-24 02:20 | NUR ---
Report received and care assumed. Pt attempting to urinate in a bucket he found in the cupboards in . States he needs to go to the BR now. Pt assisted to BR with steady gait. Will recheck upon return to .
--- NOTE | 2018-11-24 02:22 | NUR ---
ERP at bedside to recheck.
[2018-11-24 03:19] VITALS: BP 124/93
== END 2018-11-24 03:31 | disposition home or self-care (01) ==
LOC: ED 02:05
DX: K64.8 Other hemorrhoids (principal); K59.00 Constipation, unspecified; G40.909 Epilepsy, unspecified, not intractable, without status epilepticus; I10 Essential (primary) hypertension
CPT/HCPCS: 36415; 74177; 80053; 83690; 85025; 85610; 96374; 99284; J2405; Q9967

== ENCOUNTER 2021-01-06 20:21 | Inpatient (IN) | payer MEDICAID ==
[~2021-01-06] VITALS: Ht 172.7 cm; Wt 61.1 kg
[~2021-01-06 20:21] MED LIST changes: +AMLO-211 PO; -AMLO10TA8 PO; -AMLO1CAP8 PO; +AMLO1CAP9 PO; -FOLI-17 PO; +FOLI1TAB32 PO; +HYDR-2214 PO; -HYDR-3240 PO; +MULT-449 PO; -MULT1TAB60 PO; -OXYC-302 PO; +OXYC1TAB14 PO; -OXYC5TAB3 PO; +OXYC5TAB98 PO
[2021-01-06] MEDS ORDERED: PLEASE ENTER HEIGHT AND WEIGHT MC SCH (21:00)
[2021-01-06] MEDS ORDERED: SODIUM CHLORIDE FLUSH 10ML SYR IVF ONE (21:00)
[2021-01-06] MEDS ORDERED: SODIUM CHLORIDE 0.9% 1,000ML IVBOLUS ONE ×2 (21:00→22:30)
--- NOTE | 2021-01-06 21:04 | NUR ---
DB (SIGNIFICANT OTHER) [phone]
--- NOTE | 2021-01-06 21:07 | NUR ---
pt has c/o increased difficulty breathing with increased weakness over the last 2 days. pt arived by ems with nrb at 15l o2. pt ashen and diaphoretic.
[2021-01-06 21:25] LABS: MEAN CORPUSCULAR HEMOGLOBIN 34.1 pg (27.5-34.5); MEAN PLATELET VOLUME 8.3 fL (7.4-10.4); PLATELET COUNT 106 x10^3/uL (130-400); RED BLOOD COUNT 4.04 x10^6/uL (4.38-5.82); RED CELL DISTRIBUTION WIDTH 12.8 % (9.4-14.8)
[2021-01-06 21:35] LABS: RAPID INFLUENZA A Negative (Negative); RAPID INFLUENZA B Negative (Negative)
[2021-01-06 21:36] LABS: ALBUMIN 3.2 g/dL (3.4-5.0); ANION GAP 13 mmol/L (5-15); CALCIUM 8.5 mg/dL (8.5-10.1); CHLORIDE 95 mmol/L (98-107); CREATININE 1.13 mg/dL (0.7-1.3)
[2021-01-06 21:48] LABS: BAND#(MANUAL) 2.23 x10^3/uL; BANDS%(MANUAL) 24 % (0-7); LYMPH#(MANUAL) 0.19 x10^3/uL (1-3.4); LYMPHS% (MANUAL) 2 % (22-44); METAMYELOCYTES# (MANUAL) 0.09 x10^3/uL (0-0); METAMYELOCYTES% (MANUAL) 1 % (0-1); MONOS#(MANUAL) 0.37 x10^3/uL (0.3-2.7); MONOS% (MANUAL) 4 % (2-9); SEG#(MANUAL) 6.42 x10^3/uL (1.8-6.8); SEGS% (MANUAL) 69 % (42-75)
[2021-01-06 21:53] LABS: <PLATELET ESTIMATE> DECREASED; <RBC MORPHOLOGY> NORMAL
[2021-01-06 21:54] LABS: <PLT MORPHOLOGY> NORMAL PLT MORPH
[2021-01-06] MEDS ORDERED: HYDROCORTISONE 100 MG INJ. IVPush STA (22:19)
[2021-01-06] MEDS ORDERED: PIPERACILLIN/TAZO 3.375 GM in DEXTROSE 5% 50 ML IVPB ONE (22:30)
[2021-01-06] MEDS ORDERED: ASPIRIN 81 MG TABLET CHEW PO ONE (22:30)
[2021-01-06] MEDS ORDERED: ASPIRIN 81 MG TABLET CHEW ONE (22:31)
[2021-01-06] MEDS ORDERED: HYDROCORTISONE 100 MG INJ. ONE (22:35)
[2021-01-06] MEDS ORDERED: SUCCINYLCHOLINE 20 MG/ML, 10ML IVPush ONE (23:30)
[2021-01-06] MEDS ORDERED: PROPOFOL 100 ML IV PRN (23:30)
[2021-01-06] MEDS ORDERED: ETOMIDATE 20 MG/10 ML IV ONE (23:30)
--- NOTE | 2021-01-07 00:45 | NUR ---
PT INTUBATED AFTER PT WAS PLACED ON BIPAP AND OPTI FLOW WITH NO SIGNIFICANT PT RESP IMPROVMENT.
[2021-01-07] MEDS ORDERED: MIDAZOLAM HCL 50 MG in SODIUM CHLORIDE 0.9% 40 ML IV PRN (01:00)
[2021-01-07] MEDS ORDERED: MIDAZOLAM 1 MG/ML, 2ML IVPush ONE (01:00)
--- NOTE | 2021-01-07 01:20 | NUR ---
PT SWITCHED FROM PROPOFOL TO VERSED DRIP DUE TO PT HYPOTENTION
[2021-01-07] MEDS ORDERED: OXYcodone IR 5MG TABLET PO PRN (01:30)
[2021-01-07] MEDS ORDERED: LIDOCAINE-MPF 1%, 2ML ENDO PRN (01:30)
[2021-01-07] MEDS ORDERED: morphine SULFATE 10 MG/ML, 1ML IVPush PRN (01:30)
[2021-01-07] MEDS ORDERED: GUAIFENESIN/DM 200-20MG, 10ML UDC PO PRN (01:30)
[2021-01-07] MEDS ORDERED: CYCLOBENZAPRINE 10 MG TABLET PO PRN (01:30)
[2021-01-07] MEDS ORDERED: ENOXAPARIN 30 MG/0.3 ML SQ SCH (01:30)
[2021-01-07] MEDS ORDERED: PHARMACY MAY ADJ FOR RENAL FX MC SCH (01:30)
[2021-01-07] MEDS ORDERED: SODIUM CHLORIDE 0.9% 1,000ML IVBOLUS ONE (01:30)
[2021-01-07] MEDS ORDERED: LORazepam 2 MG/ML, 1ML IVPush PRN (01:30)
[2021-01-07] MEDS ORDERED: ONDANSETRON 2MG/ML, 2ML IVPush PRN (01:30)
[2021-01-07] MEDS: AZITHROMYCIN 500 MG in SODIUM CHLORIDE 0.9% 250 ML IV SCH ×2 (01:30→06:00)
[2021-01-07] MEDS ORDERED: TEMAZEPAM 15 MG CAPSULE PO PRN (01:30)
[2021-01-07] MEDS ORDERED: DEXAMETHASONE 4 MG/ML, 1ML IVPush SCH (01:30)
[2021-01-07] MEDS ORDERED: ACETAMINOPHEN 325 MG TABLET PO PRN (01:30)
[2021-01-07] MEDS: LACTATED RINGERS 1,000 ML IV SCH ×2 (01:30→15:49)
[2021-01-07] MEDS: CEFTRIAXONE 1,000 MG in DEXTROSE 5% 50 ML IVPB SCH (01:30)
[2021-01-07] MEDS ORDERED: DOCUSATE 100 MG CAPSULE PO PRN (01:30)
[2021-01-07] MEDS ORDERED: ENALAPRILAT 1.25 MG/ML, 2ML IVPush PRN (01:30)
[2021-01-07] MEDS ORDERED: LACTULOSE 20 GM/30 ML UDC NG PRN (01:30)
--- NOTE | 2021-01-07 01:43 | NUR ---
PT CENTRAL LINE PLACED
--- NOTE | 2021-01-07 01:55 | NUR ---
REPORT CALLED TO Noe HEIN
[2021-01-07 01:56] LABS: TRIGLYCERIDES 128 mg/dL (50-200)
[2021-01-07] MEDS ORDERED: NOREPINEPHRINE 8 MG in SODIUM CHLORIDE 0.9% 242 ML IV PRN (02:00)
[2021-01-07] MEDS ORDERED: DOBUTAMINE/D5W PMX 250 ML IV PRN (02:00)
[2021-01-07] MEDS: NOREPINEPHRINE 8 MG in SODIUM CHLORIDE 0.9% 242 ML IV PRN ×3 (02:02→23:02)
--- NOTE | 2021-01-07 02:19 | NUR ---
REPORT TO DEBORAH LERNER TO CTA TO FLOOR
[2021-01-07] MEDS ORDERED: HEPARIN 25,000 UNITS/250ML PMX 250 ML IV PRN ×2 (03:00→14:00)
[2021-01-07] MEDS ORDERED: HEPARIN 5,000 UNITS/ML, 1ML IV ONE ×2 (03:00→14:00)
[2021-01-07] MEDS ORDERED: HEPARIN 5,000 UNITS/ML, 1ML IV PRN (03:00)
[2021-01-07] MEDS ORDERED: OMNIPAQUE 350 MG/ML, 100ML BOTTLE ONE (03:13)
[2021-01-07] MEDS: DEXAMETHASONE 4 MG/ML, 1ML IVPush SCH (07:50)
[2021-01-07] MEDS: FAMOTIDINE 20 MG/2 ML IVPush SCH ×2 (07:50→20:23)
[2021-01-07 07:53] LABS: MEAN CORPUSCULAR HEMOGLOBIN 33.9 pg (27.5-34.5); MEAN CORPUSCULAR HGB CONC 33.4 g/dL (33.2-36.2); PLATELET COUNT 115 x10^3/uL (130-400); RED BLOOD COUNT 3.69 x10^6/uL (4.38-5.82); RED CELL DISTRIBUTION WIDTH 13.2 % (9.4-14.8)
[2021-01-07 08:02] LABS: ALANINE AMINOTRANSFERASE 121 U/L (12-78); ALBUMIN 2.7 g/dL (3.4-5.0); ANION GAP 10 mmol/L (5-15); CHLORIDE 101 mmol/L (98-107); CHOLESTEROL, TOTAL 110 mg/dL (140-239); CREATININE 1.33 mg/dL (0.7-1.3)
[2021-01-07 08:04] LABS: ALKALINE PHOSPHATASE 85 U/L (45-117); BILIRUBIN,TOTAL 1.4 mg/dL (0.2-1.0); CHOL/HDL RATIO 3.1; HDL CHOL % 33 % (26-37); HDL CHOLESTEROL (DIRECT) 36 mg/dL (40-60); LDL CHOLESTEROL,CALCULATED 56 mg/dL (54-169); LDL/HDL RATIO 1.6 (0.5-3.0); TOTAL PROTEIN 6.7 g/dL (6.4-8.2); TRIGLYCERIDES 92 mg/dL (50-200); VLDL CHOLESTEROL 18 mg/dL (0-25)
[2021-01-07 08:49] LABS: D-DIMER 1.2 ug/mlFEU (0.00-0.52)
[2021-01-07] MEDS: MIDAZOLAM HCL 50 MG in SODIUM CHLORIDE 0.9% 40 ML IV PRN ×2 (09:07→18:07)
[2021-01-07] MEDS: FENTANYL PF 1,000 MCG in SODIUM CHLORIDE 0.9% 80 ML IV PRN ×2 (09:08→21:35)
[2021-01-07 09:31] LABS: BAND#(MANUAL) 2.42 x10^3/uL; BANDS%(MANUAL) 23 % (0-7); LYMPH#(MANUAL) 0.32 x10^3/uL (1-3.4); LYMPHS% (MANUAL) 3 % (22-44); MONOS#(MANUAL) 0.42 x10^3/uL (0.3-2.7); MONOS% (MANUAL) 4 % (2-9); SEG#(MANUAL) 7.35 x10^3/uL (1.8-6.8); SEGS% (MANUAL) 70 % (42-75)
[2021-01-07 09:32] LABS: <PLATELET ESTIMATE> DECREASED; <PLT MORPHOLOGY> NORMAL PLT MORPH; <RBC MORPHOLOGY> NORMAL
[2021-01-07 09:33] LABS: PMNS WITH VACUOLES 1+
[2021-01-07] MEDS ORDERED: NOREPINEPHRINE 1 MG/ML, 4ML ONE (10:53)
[2021-01-07] MEDS ORDERED: PROPOFOL 10 MG/ML, 100ML IV ONE (11:01)
[2021-01-07] MEDS ORDERED: MIDAZOLAM 1 MG/ML, 5ML ONE (11:01)
[2021-01-07] MEDS ORDERED: ETOMIDATE 20 MG/10 ML ONE (11:01)
[2021-01-07] MEDS ORDERED: SUCCINYLCHOLINE 20 MG/ML, 10ML ONE (11:01)
[2021-01-07 12:54] LABS: MEAN CORPUSCULAR HEMOGLOBIN 33.4 pg (27.5-34.5); MEAN CORPUSCULAR HGB CONC 33.5 g/dL (33.2-36.2); MEAN PLATELET VOLUME 8.5 fL (7.4-10.4); PLATELET COUNT 129 x10^3/uL (130-400); RED BLOOD COUNT 3.78 x10^6/uL (4.38-5.82); RED CELL DISTRIBUTION WIDTH 13.3 % (9.4-14.8)
[2021-01-07 14:40] LABS: AMPHETAMINE SCREEN, URINE Negative (Negative); BARBITURATE SCREEN, URINE Negative (Negative); BENZODIAZEPINE SCREEN, URINE Positive (Negative); CANNABINOID SCREEN, URINE Negative (Negative); COCAINE SCREEN, URINE Negative (Negative); METHADONE SCREEN, URINE Negative (Negative); OPIATE SCREEN, URINE Negative (Negative)
[2021-01-07 15:29] LABS: <PLATELET ESTIMATE> DECREASED; <PLT MORPHOLOGY> NORMAL PLT MORPH; <RBC MORPHOLOGY> NORMAL; BAND#(MANUAL) 3.51 x10^3/uL; BANDS%(MANUAL) 30 % (0-7); LYMPH#(MANUAL) 0.12 x10^3/uL (1-3.4); LYMPHS% (MANUAL) 1 % (22-44); METAMYELOCYTES# (MANUAL) 0.23 x10^3/uL (0-0); METAMYELOCYTES% (MANUAL) 2 % (0-1); MONOS#(MANUAL) 1.05 x10^3/uL (0.3-2.7); MONOS% (MANUAL) 9 % (2-9); SEG#(MANUAL) 6.79 x10^3/uL (1.8-6.8); SEGS% (MANUAL) 58 % (42-75); TOXIC GRAN 1+
[2021-01-07] MEDS ORDERED: REMDESIVIR 200 MG in SODIUM CHLORIDE 0.9% 250 ML IVPB ONE (18:00)
[2021-01-07] MEDS: THIAMINE 100MG TABLET PO SCH (18:07)
[2021-01-07] MEDS: ZINC SULFATE 220 MG CAPSULE PO SCH (18:07)
[2021-01-07] MEDS: CHOLECALCIFEROL 5,000u TAB PO SCH (18:07)
[2021-01-07] MEDS: ASCORBIC ACID 500 MG TABLET PO SCH (20:22)
[2021-01-08] MEDS: CEFTRIAXONE 1,000 MG in DEXTROSE 5% 50 ML IVPB SCH (01:41)
[2021-01-08 04:00] LABS: BASOPHILS % (AUTO) 0 % (0-1); EOSINOPHILS % (AUTO) 0 % (1-7); LYMPHOCYTES % (AUTO) 3 % (22-44); MEAN CORPUSCULAR HEMOGLOBIN 33.6 pg (27.5-34.5); MEAN CORPUSCULAR HGB CONC 33.7 g/dL (33.2-36.2); MEAN PLATELET VOLUME 8.9 fL (7.4-10.4); MONOCYTES % (AUTO) 8 % (2-9); NEUTROPHILS % (AUTO) 89 % (42-75); PLATELET COUNT 145 x10^3/uL (130-400); RED BLOOD COUNT 3.68 x10^6/uL (4.38-5.82); RED CELL DISTRIBUTION WIDTH 13.5 % (9.4-14.8)
[2021-01-08] MEDS: LACTATED RINGERS 1,000 ML IV SCH ×2 (04:00→18:16)
[2021-01-08 04:13] LABS: ALANINE AMINOTRANSFERASE 125 U/L (12-78); ALBUMIN 2.5 g/dL (3.4-5.0); CALCIUM 8.2 mg/dL (8.5-10.1); CREATININE 0.81 mg/dL (0.7-1.3)
[2021-01-08 04:19] LABS: ALKALINE PHOSPHATASE 78 U/L (45-117); ANION GAP 5 mmol/L (5-15); BILIRUBIN,TOTAL 0.5 mg/dL (0.2-1.0); CHLORIDE 107 mmol/L (98-107); TOTAL PROTEIN 6.3 g/dL (6.4-8.2)
[2021-01-08] MEDS: NOREPINEPHRINE 8 MG in SODIUM CHLORIDE 0.9% 242 ML IV PRN ×2 (06:22→13:59)
[2021-01-08] MEDS: DEXAMETHASONE 4 MG/ML, 1ML IVPush SCH (08:00)
[2021-01-08] MEDS: ASCORBIC ACID 500 MG TABLET PO SCH ×2 (08:00→21:10)
[2021-01-08] MEDS: FAMOTIDINE 20 MG/2 ML IVPush SCH ×2 (08:00→21:10)
[2021-01-08] MEDS: HEPARIN 5,000 UNITS/ML, 1ML IV PRN ×2 (10:51→23:35)
[2021-01-08] MEDS: FENTANYL PF 1,000 MCG in SODIUM CHLORIDE 0.9% 80 ML IV PRN (12:22)
[2021-01-08] MEDS: REMDESIVIR 100 MG in SODIUM CHLORIDE 0.9% 250 ML IVPB SCH (18:16)
[2021-01-08] MEDS: MIDAZOLAM HCL 50 MG in SODIUM CHLORIDE 0.9% 40 ML IV PRN (18:16)
[2021-01-08] MEDS: THIAMINE 100MG TABLET PO SCH (18:16)
[2021-01-08] MEDS: CHOLECALCIFEROL 5,000u TAB PO SCH (18:16)
[2021-01-08] MEDS: ZINC SULFATE 220 MG CAPSULE PO SCH (18:16)
[2021-01-09] MEDS: AZITHROMYCIN 500 MG in SODIUM CHLORIDE 0.9% 250 ML IV SCH ×2 (01:25→01:27)
[2021-01-09] MEDS: NOREPINEPHRINE 8 MG in SODIUM CHLORIDE 0.9% 242 ML IV PRN ×2 (01:25→05:41)
[2021-01-09] MEDS: FENTANYL PF 1,000 MCG in SODIUM CHLORIDE 0.9% 80 ML IV PRN (01:26)
[2021-01-09] MEDS: CEFTRIAXONE 1,000 MG in DEXTROSE 5% 50 ML IVPB SCH (01:27)
[2021-01-09] MEDS: ASPIRIN 325 MG TABLET PO SCH (05:29)
[2021-01-09] MEDS: LACTATED RINGERS 1,000 ML IV SCH ×2 (05:42→20:55)
[2021-01-09 06:03] LABS: BASOPHILS % (AUTO) 0 % (0-1); EOSINOPHILS % (AUTO) 0 % (1-7); LYMPHOCYTES % (AUTO) 4 % (22-44); MEAN CORPUSCULAR HEMOGLOBIN 34.6 pg (27.5-34.5); MEAN CORPUSCULAR HGB CONC 34.6 g/dL (33.2-36.2); MEAN PLATELET VOLUME 9.2 fL (7.4-10.4); MONOCYTES % (AUTO) 13 % (2-9); NEUTROPHILS % (AUTO) 83 % (42-75); PLATELET COUNT 152 x10^3/uL (130-400); RED BLOOD COUNT 3.31 x10^6/uL (4.38-5.82); RED CELL DISTRIBUTION WIDTH 13.5 % (9.4-14.8)
[2021-01-09 06:09] LABS: ALANINE AMINOTRANSFERASE 183 U/L (12-78); ALBUMIN 2.2 g/dL (3.4-5.0); ANION GAP 4 mmol/L (5-15); CALCIUM 7.9 mg/dL (8.5-10.1); CHLORIDE 109 mmol/L (98-107); CREATININE 0.58 mg/dL (0.7-1.3)
[2021-01-09 06:12] LABS: % IRON SATURATION 10 % (20-55); ALKALINE PHOSPHATASE 102 U/L (45-117); BILIRUBIN,TOTAL 0.6 mg/dL (0.2-1.0); IRON LEVEL 25 mcg/dL (65-175); TOTAL IRON BINDING CAPACITY 244 mcg/dL (250-450); TOTAL PROTEIN 5.6 g/dL (6.4-8.2)
[2021-01-09] MEDS: DEXAMETHASONE 4 MG/ML, 1ML IVPush SCH (08:28)
[2021-01-09] MEDS: FAMOTIDINE 20 MG/2 ML IVPush SCH ×2 (08:28→20:55)
[2021-01-09] MEDS: ASCORBIC ACID 500 MG TABLET PO SCH ×2 (08:28→20:55)
--- NOTE | 2021-01-09 10:02 | NUR ---
TF per RD recs: Vital AF 1.2 w/ end goal rate of 55 mL/hr (on propofol); 60mL/hr (OFF propofol). Addendum: 01/09/21 at [address] Amended: Links added.
[2021-01-09] MEDS: REMDESIVIR 100 MG in SODIUM CHLORIDE 0.9% 250 ML IVPB SCH (17:44)
[2021-01-09] MEDS: CHOLECALCIFEROL 5,000u TAB PO SCH (17:45)
[2021-01-09] MEDS: ENOXAPARIN 40 MG/0.4 ML SQ SCH (17:45)
[2021-01-09] MEDS: ZINC SULFATE 220 MG CAPSULE PO SCH (17:45)
[2021-01-09] MEDS: THIAMINE 100MG TABLET PO SCH (17:45)
[2021-01-10] MEDS: CEFTRIAXONE 1,000 MG in DEXTROSE 5% 50 ML IVPB SCH (01:06)
[2021-01-10] MEDS: AZITHROMYCIN 500 MG in SODIUM CHLORIDE 0.9% 250 ML IV SCH (02:26)
[2021-01-10 05:29] LABS: BASOPHILS % (AUTO) 0 % (0-1); EOSINOPHILS % (AUTO) 0 % (1-7); LYMPHOCYTES % (AUTO) 5 % (22-44); MEAN PLATELET VOLUME 9.5 fL (7.4-10.4); MONOCYTES % (AUTO) 14 % (2-9); NEUTROPHILS % (AUTO) 81 % (42-75); PLATELET COUNT 150 x10^3/uL (130-400); RED CELL DISTRIBUTION WIDTH 13.2 % (9.4-14.8)
[2021-01-10 05:41] LABS: ALBUMIN 2.3 g/dL (3.4-5.0); ANION GAP 7 mmol/L (5-15); CALCIUM 8.3 mg/dL (8.5-10.1); CHLORIDE 110 mmol/L (98-107)
[2021-01-10 05:45] LABS: ALANINE AMINOTRANSFERASE 125 U/L (12-78); ALKALINE PHOSPHATASE 110 U/L (45-117); BILIRUBIN,TOTAL 0.5 mg/dL (0.2-1.0); CREATININE 0.64 mg/dL (0.7-1.3); TOTAL PROTEIN 5.6 g/dL (6.4-8.2)
[2021-01-10] MEDS: ASPIRIN 325 MG TABLET PO SCH (05:53)
[2021-01-10] MEDS ORDERED: POTASSIUM CHLORIDE 20 MEQ TAB.ER.PRT PO ONE (08:00)
[2021-01-10] MEDS: FAMOTIDINE 20 MG/2 ML IVPush SCH ×2 (08:49→20:20)
[2021-01-10] MEDS: DEXAMETHASONE 4 MG/ML, 1ML IVPush SCH (08:49)
[2021-01-10] MEDS: ASCORBIC ACID 500 MG TABLET PO SCH ×2 (08:50→20:30)
[2021-01-10] MEDS ORDERED: FUROSEMIDE 40 MG/4 ML IV ONE (15:30)
[2021-01-10] MEDS: ZINC SULFATE 220 MG CAPSULE PO SCH (17:52)
[2021-01-10] MEDS: THIAMINE 100MG TABLET PO SCH (17:52)
[2021-01-10] MEDS: ENOXAPARIN 40 MG/0.4 ML SQ SCH (17:52)
[2021-01-10] MEDS: REMDESIVIR 100 MG in SODIUM CHLORIDE 0.9% 250 ML IVPB SCH (17:52)
[2021-01-10] MEDS: CHOLECALCIFEROL 5,000u TAB PO SCH (17:52)
[2021-01-11] MEDS: CEFTRIAXONE 1,000 MG in DEXTROSE 5% 50 ML IVPB SCH (01:06)
[2021-01-11] MEDS: AZITHROMYCIN 500 MG in SODIUM CHLORIDE 0.9% 250 ML IV SCH (01:07)
[2021-01-11] MEDS: ASPIRIN 325 MG TABLET PO SCH (05:45)
[2021-01-11 07:13] LABS: BASOPHILS % (AUTO) 0 % (0-1); EOSINOPHILS % (AUTO) 0 % (1-7); LYMPHOCYTES % (AUTO) 7 % (22-44); MEAN CORPUSCULAR HGB CONC 34.2 g/dL (33.2-36.2); MEAN PLATELET VOLUME 9.4 fL (7.4-10.4); MONOCYTES % (AUTO) 18 % (2-9); NEUTROPHILS % (AUTO) 75 % (42-75); PLATELET COUNT 159 x10^3/uL (130-400); RED BLOOD COUNT 3.46 x10^6/uL (4.38-5.82); RED CELL DISTRIBUTION WIDTH 13.3 % (9.4-14.8)
[2021-01-11 07:20] LABS: ALANINE AMINOTRANSFERASE 87 U/L (12-78); ALBUMIN 2.2 g/dL (3.4-5.0); ANION GAP 7 mmol/L (5-15); CHLORIDE 106 mmol/L (98-107)
[2021-01-11 07:22] LABS: ALKALINE PHOSPHATASE 106 U/L (45-117); BILIRUBIN,TOTAL 0.7 mg/dL (0.2-1.0); TOTAL PROTEIN 5.3 g/dL (6.4-8.2)
[2021-01-11] MEDS: DEXAMETHASONE 4 MG/ML, 1ML IVPush SCH (08:54)
[2021-01-11] MEDS: FAMOTIDINE 20 MG/2 ML IVPush SCH ×2 (08:54→21:06)
[2021-01-11] MEDS: ASCORBIC ACID 500 MG TABLET PO SCH ×2 (08:54→21:04)
[2021-01-11] MEDS: ALBUTEROL SULFATE 2.5 MG/3 ML NPPB SCH ×3 (11:00→19:15)
[2021-01-11] MEDS: SODIUM BICARBONATE 4.2%, 5ML NPPB SCH ×3 (11:00→19:15)
[2021-01-11] MEDS: CHOLECALCIFEROL 5,000u TAB PO SCH (17:16)
[2021-01-11] MEDS: ZINC SULFATE 220 MG CAPSULE PO SCH (17:16)
[2021-01-11] MEDS: THIAMINE 100MG TABLET PO SCH (17:16)
[2021-01-11] MEDS: ENOXAPARIN 40 MG/0.4 ML SQ SCH (17:16)
[2021-01-11] MEDS ORDERED: POTASSIUM CHLORIDE 20 MEQ TAB.ER.PRT PO SCH (18:00)
[2021-01-11] MEDS: REMDESIVIR 100 MG in SODIUM CHLORIDE 0.9% 250 ML IVPB SCH (18:17)
[2021-01-12] MEDS: CEFTRIAXONE 1,000 MG in DEXTROSE 5% 50 ML IVPB SCH (01:26)
[2021-01-12] MEDS: AZITHROMYCIN 500 MG in SODIUM CHLORIDE 0.9% 250 ML IV SCH (03:03)
[2021-01-12] MEDS: ASPIRIN 325 MG TABLET PO SCH (06:00)
[2021-01-12] MEDS: ALBUTEROL SULFATE 2.5 MG/3 ML NPPB SCH (07:23)
[2021-01-12] MEDS: SODIUM BICARBONATE 4.2%, 5ML NPPB SCH (07:23)
[2021-01-12] MEDS: FAMOTIDINE 20 MG/2 ML IVPush SCH (07:46)
[2021-01-12] MEDS: DEXAMETHASONE 4 MG/ML, 1ML IVPush SCH (07:47)
[2021-01-12] MEDS: POTASSIUM CHLORIDE 20 MEQ TAB.ER.PRT PO SCH ×3 (07:47→17:10)
[2021-01-12] MEDS: ASCORBIC ACID 500 MG TABLET PO SCH ×2 (08:31→21:09)
[2021-01-12] MEDS ORDERED: ALBUTEROL HFA 90 MCG/SPRAY INH SCH (11:00)
[2021-01-12] MEDS: LISINOPRIL 5 MG TABLET PO SCH (11:06)
[2021-01-12] MEDS: THIAMINE 100MG TABLET PO SCH (17:09)
[2021-01-12] MEDS: ENOXAPARIN 40 MG/0.4 ML SQ SCH (17:09)
[2021-01-12] MEDS: CHOLECALCIFEROL 5,000u TAB PO SCH (17:09)
[2021-01-12] MEDS: ZINC SULFATE 220 MG CAPSULE PO SCH (17:10)
[2021-01-12 18:51] VITALS: BP 133/83
[2021-01-12] MEDS: ATORVASTATIN 40 MG TABLET PO SCH (21:09)
[2021-01-13] MEDS: CEFTRIAXONE 1,000 MG in DEXTROSE 5% 50 ML IVPB SCH (01:42)
[2021-01-13 01:45] VITALS: BP 128/80
[2021-01-13 05:16] LABS: BASOPHILS % (AUTO) 0 % (0-1); EOSINOPHILS % (AUTO) 0 % (1-7); LYMPHOCYTES % (AUTO) 7 % (22-44); MEAN CORPUSCULAR HEMOGLOBIN 34.2 pg (27.5-34.5); MEAN CORPUSCULAR HGB CONC 34.8 g/dL (33.2-36.2); MEAN PLATELET VOLUME 9.5 fL (7.4-10.4); MONOCYTES % (AUTO) 13 % (2-9); NEUTROPHILS % (AUTO) 79 % (42-75); PLATELET COUNT 185 x10^3/uL (130-400); RED BLOOD COUNT 3.54 x10^6/uL (4.38-5.82); RED CELL DISTRIBUTION WIDTH 13.3 % (9.4-14.8)
[2021-01-13 05:17] LABS: CHLORIDE 103 mmol/L (98-107)
[2021-01-13 05:24] LABS: ALANINE AMINOTRANSFERASE 60 U/L (12-78); ALBUMIN 2.3 g/dL (3.4-5.0); ALKALINE PHOSPHATASE 105 U/L (45-117); ANION GAP 3 mmol/L (5-15); BILIRUBIN,TOTAL 0.8 mg/dL (0.2-1.0); CREATININE 0.49 mg/dL (0.7-1.3); TOTAL PROTEIN 5.5 g/dL (6.4-8.2)
[2021-01-13] MEDS: ASPIRIN 325 MG TABLET PO SCH (05:39)
[2021-01-13 07:24] VITALS: BP 12/83
[2021-01-13] MEDS ORDERED: POTASSIUM CHLORIDE 20 MEQ TAB.ER.PRT PO SCH (07:30)
[2021-01-13] MEDS: DEXAMETHASONE 4 MG/ML, 1ML IVPush SCH (10:04)
[2021-01-13] MEDS: LISINOPRIL 5 MG TABLET PO SCH (10:05)
[2021-01-13] MEDS: POTASSIUM CHLORIDE 20 MEQ TAB.ER.PRT PO SCH ×3 (10:05→20:10)
[2021-01-13] MEDS: ASCORBIC ACID 500 MG TABLET PO SCH ×2 (10:05→20:10)
[2021-01-13] MEDS: CARVEDILOL 3.125 MG TABLET PO SCH ×2 (10:05→17:44)
[2021-01-13 10:11] VITALS: BP 121/79
[2021-01-13] MEDS ORDERED: MAGNESIUM SULFATE PMX 2GM/50ML 50 ML IV ONE (11:30)
[2021-01-13 13:19] VITALS: BP 101/71
[2021-01-13] MEDS: ENOXAPARIN 40 MG/0.4 ML SQ SCH (17:43)
[2021-01-13] MEDS: CHOLECALCIFEROL 5,000u TAB PO SCH (17:44)
[2021-01-13] MEDS: THIAMINE 100MG TABLET PO SCH (17:44)
[2021-01-13] MEDS: ZINC SULFATE 220 MG CAPSULE PO SCH (17:44)
[2021-01-13] MEDS: ATORVASTATIN 40 MG TABLET PO SCH (20:10)
[2021-01-13 20:13] VITALS: BP 116/77
[2021-01-14] MEDS ORDERED: CEFTRIAXONE 1,000 MG in DEXTROSE 5% 50 ML IVPB SCH (01:30)
[2021-01-14 02:00] VITALS: BP 102/75
[2021-01-14] MEDS: ASPIRIN 325 MG TABLET PO SCH (05:33)
[2021-01-14] MEDS: CARVEDILOL 3.125 MG TABLET PO SCH ×2 (05:39→17:26)
[2021-01-14 07:43] LABS: CHLORIDE 104 mmol/L (98-107)
[2021-01-14 08:06] LABS: ANION GAP 5 mmol/L (5-15)
[2021-01-14 08:40] VITALS: BP 120/74
[2021-01-14] MEDS: ASCORBIC ACID 500 MG TABLET PO SCH ×2 (10:16→19:46)
[2021-01-14] MEDS: MAGNESIUM OXIDE 400 MG TABLET PO SCH (10:16)
[2021-01-14] MEDS: LISINOPRIL 5 MG TABLET PO SCH (10:16)
[2021-01-14 13:10] VITALS: BP 120/83
[2021-01-14] MEDS: CHOLECALCIFEROL 5,000u TAB PO SCH (17:26)
[2021-01-14] MEDS: ZINC SULFATE 220 MG CAPSULE PO SCH (17:26)
[2021-01-14] MEDS: THIAMINE 100MG TABLET PO SCH (17:26)
[2021-01-14] MEDS: ENOXAPARIN 40 MG/0.4 ML SQ SCH (17:26)
[2021-01-14] MEDS: ATORVASTATIN 40 MG TABLET PO SCH (19:46)
[2021-01-14 19:56] VITALS: BP 120/76
[2021-01-15 02:35] VITALS: BP 125/63
[2021-01-15] MEDS: ASPIRIN 325 MG TABLET PO SCH (05:09)
[2021-01-15] MEDS: CARVEDILOL 3.125 MG TABLET PO SCH (05:09)
[2021-01-15 05:53] LABS: BASOPHILS % (AUTO) 0 % (0-1); EOSINOPHILS % (AUTO) 0 % (1-7); LYMPHOCYTES % (AUTO) 8 % (22-44); MEAN CORPUSCULAR HEMOGLOBIN 33.9 pg (27.5-34.5); MEAN CORPUSCULAR HGB CONC 34.5 g/dL (33.2-36.2); MEAN PLATELET VOLUME 9.4 fL (7.4-10.4); MONOCYTES % (AUTO) 11 % (2-9); NEUTROPHILS % (AUTO) 80 % (42-75); PLATELET COUNT 224 x10^3/uL (130-400); RED BLOOD COUNT 3.62 x10^6/uL (4.38-5.82); RED CELL DISTRIBUTION WIDTH 13.2 % (9.4-14.8)
[2021-01-15 05:58] LABS: ANION GAP 4 mmol/L (5-15); CALCIUM 8.2 mg/dL (8.5-10.1); CHLORIDE 102 mmol/L (98-107)
[2021-01-15 06:02] LABS: CREATININE 0.63 mg/dL (0.7-1.3)
[2021-01-15 07:56] VITALS: BP 129/79
[2021-01-15] MEDS: MAGNESIUM OXIDE 400 MG TABLET PO SCH (08:30)
[2021-01-15] MEDS: ASCORBIC ACID 500 MG TABLET PO SCH (08:30)
[2021-01-15] MEDS: LISINOPRIL 5 MG TABLET PO SCH (08:30)
[2021-01-15] MEDS ORDERED: MAGN400T50 PO (12:01)
[2021-01-15] MEDS ORDERED: ASCO500T9 PO (12:01)
[2021-01-15] MEDS ORDERED: ZINC220C8 PO (12:01)
[2021-01-15] MEDS ORDERED: CARV3.1212 PO (12:01)
[2021-01-15] MEDS ORDERED: ASPI81TA45 PO (12:01)
[2021-01-15] MEDS ORDERED: ATOR40TA78 PO (12:01)
[2021-01-15] MEDS ORDERED: PRED10TA PO (12:01)
[2021-01-15] MEDS ORDERED: LISI5TAB7 PO (12:01)
[2021-01-15] MEDS ORDERED: CHOL500045 PO (12:01)
[2021-01-15] MEDS: ENOXAPARIN 40 MG/0.4 ML SQ SCH (17:00)
== END 2021-01-15 17:48 | disposition home or self-care (01) | DRG 720 ==
LOC: ED 01-07 00:05 → EDIP 01-07 01:11 → CCU 01-07 02:44 → 5SO 01-12 18:48
PROVIDERS: ADMIT Internal Medicine; ATTEND Internal Medicine
PROC: 0BH17EZ Insertion of Endotracheal Airway into Trachea, Via Natural or Artificial Opening (ICD-10-PCS; principal; 2021-01-07)
PROC: 5A1945Z Respiratory Ventilation, 24-96 Consecutive Hours (ICD-10-PCS; 2021-01-07)
PROC: 02HV33Z Insertion of Infusion Device into Superior Vena Cava, Percutaneous Approach (ICD-10-PCS; 2021-01-07)
PROC: B548ZZA Ultrasonography of Superior Vena Cava, Guidance (ICD-10-PCS; 2021-01-07)
PROC: 5A09357 Assistance with Respiratory Ventilation, Less than 24 Consecutive Hours, Continuous Positive Airway Pressure (ICD-10-PCS; 2021-01-07)
PROC: 5A0935A Assistance with Respiratory Ventilation, Less than 24 Consecutive Hours, High Flow/Velocity Cannula (ICD-10-PCS; 2021-01-09)
PROC: 5A0935A Assistance with Respiratory Ventilation, Less than 24 Consecutive Hours, High Flow/Velocity Cannula (ICD-10-PCS; 2021-01-10)
PROC: 5A0935A Assistance with Respiratory Ventilation, Less than 24 Consecutive Hours, High Flow/Velocity Cannula (ICD-10-PCS; 2021-01-11)
PROC: XW033E5 Introduction of Remdesivir Anti-infective into Peripheral Vein, Percutaneous Approach, New Technology Group 5 (ICD-10-PCS; 2021-01-12)
DX: A41.9 Sepsis, unspecified organism (principal); I21.A1 Myocardial infarction type 2; U07.1 COVID-19; J96.01 Acute respiratory failure with hypoxia; E43 Unspecified severe protein-calorie malnutrition; K55.069 Acute infarction of intestine, part and extent unspecified; K76.6 Portal hypertension; G93.40 Encephalopathy, unspecified; I11.0 Hypertensive heart disease with heart failure; I50.20 Unspecified systolic (congestive) heart failure; E87.1 Hypo-osmolality and hyponatremia; I42.9 Cardiomyopathy, unspecified; J12.82 Pneumonia due to coronavirus disease 2019; F10.20 Alcohol dependence, uncomplicated; E87.8 Other disorders of electrolyte and fluid balance, not elsewhere classified; F17.200 Nicotine dependence, unspecified, uncomplicated; K74.60 Unspecified cirrhosis of liver; K86.0 Alcohol-induced chronic pancreatitis; R18.8 Other ascites; R65.21 Severe sepsis with septic shock; R57.0 Cardiogenic shock; Z90.49 Acquired absence of other specified parts of digestive tract; Z99.11 Dependence on respirator [ventilator] status; Z68.20 Body mass index [BMI] 20.0-20.9, adult; Z88.8 Allergy status to other drugs, medicaments and biological substances
CPT/HCPCS: 31500; 36415; 36556; 36600; 87400; 96361; 96374; 99291; J7613; 71045; 71275; 76700; 80048; 80053; 80061; 80307; 82040; 82550; 82803; 83540; 83550; 83605; 83735; 83880; 84100; 84443; 84478; 84484; 85025; 85379; 85384; 85520; 86140; 87040; 87070; 87081; 87205; 93005; 93306; 93970; 94002; 94003; 94640; 94660; G0378; J0456; J0696; J1100; J1644; J1650; J1940; J2250; J2543; J2704; J3010; Q9967; U0005; J0330; J1250; J1720; J2270; J3475; J7030; J7050; J7120; J7512; U0003